=== PATIENT | male | born 1950 | race Caucasian/White ===

== ENCOUNTER 2020-08-29 10:11 | Outpatient (REF) | payer MEDICARE, SELFPAY ==
--- NOTE | 2020-08-29 10:17 | XR_ITS ---
EXAMINATION: KNEE X-RAY CLINICAL INFORMATION: Left knee pain COMPARISON: Previous x-ray December 2019 TECHNIQUE: Standing AP view of both knees and standing lateral view of the left knee FINDINGS: Left: There is a 3 component left knee replacement in satisfactory position. No fracture or dislocation is seen. There is a small joint effusion. There is a right knee replacement in satisfactory position. XR/XR knee LT 2V IMPRESSION: Left knee: Satisfactory appearance of component knee replacement. Small joint effusion. Right knee: Satisfactory appearance of right knee replacement.
--- NOTE | 2020-08-29 10:17 | XR_ITS ---
EXAMINATION: KNEE X-RAY CLINICAL INFORMATION: Left knee pain COMPARISON: Previous x-ray December 2019 TECHNIQUE: Standing AP view of both knees and standing lateral view of the left knee FINDINGS: Left: There is a 3 component left knee replacement in satisfactory position. No fracture or dislocation is seen. There is a small joint effusion. There is a right knee replacement in satisfactory position. XR/XR knee standing BI IMPRESSION: Left knee: Satisfactory appearance of component knee replacement. Small joint effusion. Right knee: Satisfactory appearance of right knee replacement.
== END 2020-08-29 10:12 | disposition home or self-care (01) ==
LOC: HO.HOSX 10:11
PROVIDERS: PCP Internal Medicine; Referring Provider Internal Medicine; Visit Provider Orthopaedic Surgery
DX: M25.562 Pain in left knee (principal); M25.561 Pain in right knee; Z96.652 Presence of left artificial knee joint
CPT/HCPCS: 73560; 73565; 99212

== ENCOUNTER 2020-11-21 10:05 | Outpatient (REF) | payer MEDICARE, SELFPAY ==
--- NOTE | 2020-11-21 10:10 | XR_ITS ---
EXAMINATION: XR CERVICAL SPINE CLINICAL INFORMATION: Pain. Spondylosis with radiculopathy. COMPARISON: None TECHNIQUE: 3 views of the cervical spine were obtained. FINDINGS: The craniocervical junction is normal. The dens and atlantodental articulation are intact. The cervical vertebra have normal height. No fracture or prevertebral soft tissue swelling. No focal lytic or osteoblastic lesion. Multilevel moderate and severe facet arthropathy and discovertebral degenerative changes. The loss of disc space is worst at C5-C6 (posteriorly) and C6-C7. There is approximately 0.2 cm degenerative anterolisthesis at C4-C5 and C5-C6. Otherwise, cervical vertebra have normal alignment. A focus of nuchal ligament ossification projects posterior to C4-C5. The visualized lung apices are normal. XR/XR cervical spine 3V IMPRESSION: * Moderate to severe multilevel degenerative arthropathy of the cervical spine. * Mild degenerative anterolisthesis is present at C4-C5 and C5-C6. Otherwise, alignment is normal.
== END 2020-11-21 10:06 | disposition home or self-care (01) ==
LOC: HO.XRAY 10:05
PROVIDERS: PCP Internal Medicine; Visit Provider Internal Medicine
DX: M47.22 Other spondylosis with radiculopathy, cervical region (principal)
CPT/HCPCS: 72040

== ENCOUNTER 2021-02-09 11:00 | Outpatient (RCR) | payer MEDICARE, SELFPAY ==
--- NOTE | 2020-12-06 08:54 | MHC.PT.EP ---
[facility] [place] Office [place] Office [place] Office [address] [phone] F: [phone] F: [phone] F: [phone] F: [phone] Physical Therapy Plan of Care Date of Evaluation: 12/05/20 Date of Surgery: n/a Diagnosis: Other spondylosis with radiculopathy, cervical region Assessment: Patient is a 70 year old R handed male who presents with s/s consistent with cervical pain/spondylosis, radiculopathy. He stays active daily with what he refers to as his honey-do list including mostly cna gna. Patient past medical history includes TKA x2 and HTN. Current impairments include pain, ROM, posture, activity tolerance and functional mobility. Functional limitations include decreased ability to drive, sleep, carry, push, pull, and perform weight bearing activities.. Patient is motivated with good rehab potential. Skilled PT will address impairments and functional limitations in order to achieve goals. Frequency and Duration: The patient will be seen 2x/week for 5 weeks Short Term Goals: I with HEP - 2 weeks AROM L rotation 28 - 2 weeks no sleep disturbance from c-spine - 3 weeks Jail Goals: NPDI 12% or less - 5 weeks reduced tissue tension - 4 weeks AROM L rotation 34 - 5 weeks Treatment Plan: Modalities to reduce pain, spasms and effusion. Manual therapy to restore motion and function. Therapeutic exercise to improve strength and flexibility. Neuromuscular re-education for posture and balance. Therapeutic activities to return to functional activities of daily living. Electronically signed by: Femi Rebollar PT Please sign and return to therapist. Thank you for your referral.
--- NOTE | 2021-03-02 09:59 | MHC.PT.DC ---
[facility] [place] Office [place] Office [place] Office [address] [phone] F: [phone] F: [phone] F: [phone] F: [phone] Physical Therapy Discharge Report Diagnosis: Other spondylosis with radiculopathy, cervical region Date of Surgery: n/a Date of Evaluation: 12/05/20 Date of Discharge: 02/15/21 Treatments to Date: 16 Cancellations to Date: 0 No Shows to Date: 0 Discharge Status: Discharge Summary: I with HEP. L rotation to 41, R 50. Reduced tissue tension. No sleep disturbance from t-spine for 2 weeks. Pt progressed well over the course of skilled PT making progress on impairments and functional limitations resulting in an improved quality of life. Pt is I with HEP and appropriate to d/c to HEP at this time. Electronically signed by: Femi Rebollar, PT Please sign and return to therapist. Thank you for your referral.
== END 2021-03-02 10:01 | disposition home or self-care (01) ==
LOC: HO.PTCHIC 11:00
PROVIDERS: PCP Internal Medicine; Visit Provider Internal Medicine
DX: M47.22 Other spondylosis with radiculopathy, cervical region (principal)
CPT/HCPCS: 97012; 97014; 97110; 97140; 97162

== ENCOUNTER 2021-08-29 09:54 | Outpatient (REF) | payer MEDICARE, SELFPAY ==
--- NOTE | ~2021-08-29 | XR_ITS ---
EXAMINATION: XR KNEE, LEFT XR KNEE, STANDING BILATERAL CLINICAL INDICATION: Pain. COMPARISON: Comparison is made to previous dated 01/05/2020. TECHNIQUE: Standing image of the knees and 3 detailed views of the left knee. FINDINGS: Standing image demonstrates two-part prosthesis on the right and left. No change from previous. Appear stable. Detailed imaging of the left knee show stable exam. Some dystrophic calcification is now seen posterior. No convincing evidence for hardware failure. XR/XR knee standing BI IMPRESSION: Prosthesis right and left knee as described. No acute finding. Some dystrophic calcification is seen about the left knee.
--- NOTE | ~2021-08-29 | XR_ITS ---
EXAMINATION: XR KNEE, LEFT XR KNEE, STANDING BILATERAL CLINICAL INDICATION: Pain. COMPARISON: Comparison is made to previous dated 01/05/2020. TECHNIQUE: Standing image of the knees and 3 detailed views of the left knee. FINDINGS: Standing image demonstrates two-part prosthesis on the right and left. No change from previous. Appear stable. Detailed imaging of the left knee show stable exam. Some dystrophic calcification is now seen posterior. No convincing evidence for hardware failure. XR/XR knee LT 2V IMPRESSION: Prosthesis right and left knee as described. No acute finding. Some dystrophic calcification is seen about the left knee.
== END 2021-08-29 09:55 | disposition home or self-care (01) ==
LOC: HO.HOSX 09:54
PROVIDERS: Visit Provider Physician Assistant
DX: T84.033A Mechanical loosening of internal left knee prosthetic joint, initial encounter (principal); M25.562 Pain in left knee; M25.561 Pain in right knee
CPT/HCPCS: 73560; 73565; 99212

== ENCOUNTER 2023-07-24 08:24 | Outpatient (AMB) | payer MEDICARE, SELFPAY ==
--- NOTE | 2023-07-24 08:37 | A.OFFPC_ITS ---
Vital Signs 07/24/23 08:38 Height 5 ft 6 in Weight 221 lb 6 oz BMI 35.7 BP 112/70 Blood Pressure Location Lt brachial Position Sitting Pulse 65 Pulse Source Pulse Oximeter Pulse Oximetry (%) 96 Oxygen Delivery Method Room Air Intake Visit Reasons: Physical exam Intake Note: Patient is here today for a physical. Drug Worker Required: No Wound Care Center Consultant: Not Required per policy Accompanied by: Self / Same As Patient Allergies amoxicillin [AMOXICILLIN] Allergy (Intermediate, Verified 07/24/23 08:59) dizziness,nausea Medication List - Last Reconciled 07/24/23 by Dev Pierre MD alclometasone 0.05% 1 appl topical BID amlodipine 10 mg PO DAILY aspirin (Adult Low Dose Aspirin) 81 mg PO DAILY bisoprolol-hydrochlorothiazide 5-6.25 mg 1 tab PO DAILY ketoconazole 2% 1 appl topical BID losartan 100 mg PO DAILY naproxen 500 mg PO DAILY Tobacco use date assessed: 07/24/23 Fall risk assessment: No Falls in past year Last assessed Fall Risk: 07/24/23 Dental Screening Dental Screen Date: 07/24/23 Did you have a dental visit in the last 12 months?: Yes Did you have a dental problem in the last 6 months where you did not have access to dental care?: No Was dental information given to patient?: Patient has dentist HPI Physical exam HPI Details 72-year-old male presents to the office requesting an annual physical. He is compliant with medications. Able to drive at night. Lives independently and is able to take care of all his activities. Uses Naprosyn intermittently for osteoarthritis. REPLACED BY [facility] Medical History Class 2 severe obesity with body mass index (BMI) of 35 to 39.9 with serious comorbidity Osteoarthritis of neck Benign essential HTN Diverticulosis Bilateral primary osteoarthritis of knee Surgical History History of tooth extraction History of colonoscopy H/O removal of neck cyst History of knee replacement procedure of left knee History of knee replacement procedure of right knee History of tonsillectomy History of appendectomy Family History Father No problems noted. Mother No problems noted. Brother Healthy adult Son No problems noted. Son No problems noted. Daughter Healthy adult Social History Housing: House Alcohol intake: current Alcohol intake frequency: holidays/special occasions only Patient Tobacco Use Status: Former Tobacco user (once a month) Tobacco use type: Cigar e-Cigarette/Vaping Use: Never Used service: No Current occupational status: retired Cognitive needs: No Hearing needs: No Vision needs: Yes (glasses) Questionnaire Thrive Questionnaire Date Thrive assessed: 11/06/22 QUAN-7 AMB Questionnaire QUAN-7 Date QUAN - 7 assessed: 11/06/22 Source: Developed by Drs. Homero Ricardo, Meredith Khalil, Bin He and colleagues, with an educational juan miguel from [employer]. Physical exam (Primary Care) Vital Signs: Last Vital Signs Pulse 65 07/24/23 08:38 BP 112/70 07/24/23 08:38 Pulse Ox 96 07/24/23 08:38 Oxygen Delivery Method Room Air 07/24/23 08:38 Care Plan Goal for BP management: Blood pressure is in range. BMI result Body Mass Index 35.7 Tobacco/Smoking Status: Tobacco use Status Tobacco use date assessed 07/24/23 07/24/23 08:45 Patient Tobacco Use Status Former Tobacco user (once a 07/24/23 08:45 month) Tobacco use type Cigar 07/24/23 08:45 e-Cigarette/Vaping Use Never Used 07/24/23 08:45 Thrive Assessment: Date of Thrive Assessment Date Thrive assessed 11/06/22 07/24/23 08:45 Advance Care Planning discussion: Exists, not on file Date of discussion: 07/24/23 Forms completed: Health Care Proxy and MOLST Time spent: 1-15 minutes, not on file Actual minutes spent: 5 Const General: cooperative and healthy appearing Nutritional Appearance: well nourished Orientation/consciousness: patient oriented x3 Limitations: no limitations HENMT Head: Yes normal to inspection Eyes General: appearance normal, both eyes and all related structures Neck Neck: Yes normal visual inspection Chest Chest palpation & inspection: normal palpation of entire chest wall Resp Effort & Inspection: normal respiratory effort Neuro General: patient oriented x3 Assessment and Plan Assessment & Plan (1) Benign essential HTN: Code(s): I10 - Essential (primary) hypertension (2) Annual visit for general adult medical examination without abnormal findings: Code(s): Z00.00 - Encounter for general adult medical examination without abnormal findings Plan: Blood work has been ordered. Patient will be getting his COVID and flu vaccine shortly. Orders: Orders Basic Metabolic Panel Today I10 - Essential (primary) hypertension Complete Blood Count no Diff Today I10 - Essential (primary) hypertension UA and rflx microscopic Today I10 - Essential (primary) hypertension Liver Panel Today I10 - Essential (primary) hypertension Lipid Panel Today I10 - Essential (primary) hypertension Thyroid Stimulating Hormone Today I10 - Essential (primary) hypertension Prostate Specific Antigen Scr Today I10 - Essential (primary) hypertension Coding Level of Care Code Est Pt Prev Care >65y(54540) Diagnoses Benign essential HTN I10 Annual visit for general adult medical examination without abnormal findings Z00.00 Additional Codes Vital Signs *Quality* - Advance Care Planning discussion: Exists, not on file ([id number]) Vital Signs *Quality* - Time spent: 1-15 minutes, not on file ([id number])
[2023-07-24 08:38] VITALS: BP 112/70; PULSE 65; O2SAT 96; BMI 35.7
== END 2023-07-24 08:56 | disposition home or self-care (01) ==
PROVIDERS: PCP Internal Medicine; Visit Provider Internal Medicine
DX: Z00.00 Encounter for general adult medical examination without abnormal findings (principal); I10 Essential (primary) hypertension; Z96.652 Presence of left artificial knee joint
CPT/HCPCS: 1124F; 99397

== ENCOUNTER 2023-07-24 09:04 | Outpatient (REF) | payer MEDICARE, SELFPAY ==
[2023-07-24 10:07] LABS: Hematocrit 50.8 % (42.0-52.0); Mean Corpuscular HGB Conc 33.5 g/dl (31.0-36.0); Mean Corpuscular Volume 89.6 fL (80.0-98.0); Mean Platelet Volume 11.2 fL (9.4-12.4); Platelet Count 239 X10*3/uL (160-400); Red Blood Count 5.67 X10*6/uL (4.60-5.80); Red Cell Distribution Width 13.9 % (11.0-16.0)
[2023-07-24 11:35] LABS: Alanine Aminotransferase 60 U/L (0-40); Albumin Level 4.2 g/dL (3.5-5.0); Alkaline Phosphatase 55 U/L (39-117); Anion Gap 18 (12-20); Aspartate Amino Transferase 43 U/L (5-37); Bilirubin Direct 0.3 mg/dL (0.0-0.5); Bilirubin Total 0.8 mg/dL (0.0-1.0); Blood Urea Nitrogen 13 mg/dL (9-16); Calcium 9.8 mg/dL (8.4-10.2); Carbon Dioxide 24 mmol/L (22-29); Chloride 106 mmol/L (96-108); Cholesterol 193 mg/dL (<200); Estimated Glomerular Filt Rate > 60; Glucose Random 115 mg/dL (60-115); HDL Cholesterol 36 mg/dL (>40); LDL Cholesterol Calculated 116 mg/dL (<100); Potassium 3.9 mmol/L (3.3-5.1); Prostate Specific Antigen Scr 5.08 ng/mL (<0.05-4.0); Sodium 144 mmol/L (135-145); Thyroid Stimulating Hormone 1.61 uIU/mL (0.32-4.0); Total Protein 7.5 g/dL (6.5-8.0); Triglycerides 208 mg/dL (<150)
[2023-07-24 14:15] LABS: Appearance Urine Clear; Color Urine Yellow; Glucose Urine UA Negative (Negative); Leukocyte Esterase Urine Negative (Negative); Nitrite Urine Negative (Negative); Specific Gravity - Urine 1.015 (1.005-1.025); Urine Blood Negative (Negative); Urine Ketones Negative (Negative); Urine Protein Negative (Neg-Trace)
== END 2023-07-24 09:05 | disposition home or self-care (01) ==
LOC: HO.LAB 09:04
PROVIDERS: PCP Internal Medicine; Visit Provider Internal Medicine
DX: Z12.5 Encounter for screening for malignant neoplasm of prostate (principal); I10 Essential (primary) hypertension
CPT/HCPCS: 36415; 80048; 80061; 80076; 81003; 84153; 84443; 85027

== ENCOUNTER → 2023-09-15 10:56 | Outpatient (BNVA) | payer MEDICARE, SELFPAY | PROVIDERS: PCP Internal Medicine; Referring Provider Internal Medicine; Visit Provider Urology ==

== ENCOUNTER 2023-10-22 14:24 | Outpatient (AMB) | payer MEDICARE, SELFPAY ==
--- NOTE | 2023-10-22 14:33 | A.OFFVIS_ITS ---
Intake Intake Visit Reasons: Elevated PSA Intake Note: NEW Patient presents today to established treatment for Elevated PSA 5.08 ng/mL, 07/24/2023: Meds- None Allergies to Antibiotic- Amoxicillin Blood Thinner- Aspirin [place]ants Specialist Required: No Accompanied by: Self / Same As Patient Allergies amoxicillin [AMOXICILLIN] Allergy (Intermediate, Verified 11/22/23 12:19) dizziness,nausea Medication List - Last Reconciled 10/22/23 by Harris Zhang MD alclometasone 0.05% 1 appl topical BID amlodipine 10 mg PO DAILY aspirin (Adult Low Dose Aspirin) 81 mg PO DAILY bisoprolol-hydrochlorothiazide 5-6.25 mg 1 tab PO DAILY finasteride (Proscar) 5 mg PO DAILY 90 days ketoconazole 2% 1 appl topical BID losartan 100 mg PO DAILY naproxen 500 mg PO DAILY HPI HPI Comments History of Present Illness Details Nolan is a 73 year old male who is here for evaluation for elevated PSA. 07/24/2023--Elevated PSA 5.08 ng/mL, Past Medical history of Class 2 severe obesity with body mass index (BMI) of 35 to 39.9 Benign essential HTN Bilateral primary osteoarthritis of knee Surgical history includes but is not limited to:History of knee replacement procedure of B/L knees, appendectomy The patient has feeling of incomplete bladder emptying and weak urinary stream, denies daytime urinary frequency, urinary incontinence, nocturia x 2, denies hematuria, or dysuria, I have discussed that elevated PSA may indicate changes in the prostate including benign enlargement, cancer and an inflammatory condition. I have discussed doing a biopsy has risks and that management in early detection of prostate cancer may include active surveillance. Exam- Prostate - smooth, enlarged Plan: Repeat PSA, US Retroperitoneum [facility] Medical History Class 2 severe obesity with body mass index (BMI) of 35 to 39.9 with serious comorbidity Osteoarthritis of neck Benign essential HTN Diverticulosis Bilateral primary osteoarthritis of knee Surgical History History of tooth extraction History of colonoscopy H/O removal of neck cyst History of knee replacement procedure of left knee History of knee replacement procedure of right knee History of tonsillectomy History of appendectomy Family History Father No problems noted. Mother No problems noted. Brother Healthy adult Son No problems noted. Son No problems noted. Daughter Healthy adult Social History Housing: House Alcohol intake: current Alcohol intake frequency: holidays/special occasions only Patient Tobacco Use Status: Former Tobacco user (once a month) Tobacco use type: Cigar e-Cigarette/Vaping Use: Never Used Advance Directives: No Advance Directives Information Provided: Yes service: No Current occupational status: retired Cognitive needs: No Hearing needs: No Vision needs: Yes (glasses) Review of Systems Const All systems reviewed & are unremarkable except as noted in HPI and below Reports no additional complaints Eyes Reports no additional complaints ENT Reports no additional complaints Card Denies dyspnea Resp Denies cough and Denies dyspnea GI Reports no additional complaints Musc Reports no additional complaints Skin/Breast Denies rash and Denies unusual bruising Neuro Reports no additional complaints Psych Reports no additional complaints Endo Reports no additional complaints John/Lymph Reports no additional complaints Aller/Immun Reports no additional complaints Physical Exam Const General: healthy appearing, no acute distress and well developed Orientation/consciousness: patient oriented x3 HEENT Head: Yes normocephalic and Yes atraumatic Eyes Conjunctivae: conjunctivae normal Neck Neck: Yes normal visual inspection Chest Chest palpation & inspection: normal inspection of the chest Resp Effort & Inspection: normal respiratory effort Cardio Rate: regular rate GI Inspection: Yes normal to inspection Palpation (GI): Soft to palpation Other: Prostate Exam: smooth enlarged Skin General skin exam: no rashes or lesions noted Neuro General: patient oriented x3 Extrem General: No pedal edema Psych Appearance: grossly normal Affect: normal affect Results AMB Urinalysis, Automated UA Leukoctes 0 Jerman/uL Last Edit by VEGA Martines on 10/22/23 15:56 UA Nitrite Negative Last Edit by VEGA Martines on 10/22/23 15:56 UA Urobilinogen 0.2 mg/dL Last Edit by VEGA Martines on 10/22/23 15:5 6 UA Protein 0 mg/dL Last Edit by Brent Doyle Afia on 10/22/23 15:56 UA pH 6.0 Last Edit by Brent Doyle Afia on 10/22/23 15:56 UA Blood 25 Juan/uL Last Edit by Brent Doyle Afia on 10/22/23 15:56 1+ Brent Doyle 10/22/23 15:56 UA Specific Harrod 1.020 Last Edit by VEGA Martines on 10/22/23 15: 56 UA Ketone Negative Last Edit by Brent Doyle Afia on 10/22/23 15:56 UA Bilirubin 0 mg/dL Last Edit by Brent Doyle Afia on 10/22/23 15:56 UA Glucose 0 mg/dL Last Edit by Brent Doyle Afia on 10/22/23 15:56 Results Reviewed Results Reviewed: Laboratory Last Values Urine pH (Auto) 6.0 10/22/23 15:55 Specific Harrod (Auto) 1.020 10/22/23 15:55 Urine Protein (Auto) 0 mg/dL 10/22/23 15:55 Glucose (UA)(Auto) 0 mg/dL 10/22/23 15:55 Urine Ketones (Auto) Negative 10/22/23 15:55 Urine Blood (Auto) 25 Juan/uL 10/22/23 15:55 Urine Nitrite (Auto) Negative 10/22/23 15:55 Urine Bilirubin (Auto) 0 mg/dL 10/22/23 15:55 Urine Urobilinogen (Auto) 0.2 mg/dL 10/22/23 15:55 Leukocyte Esterase (Auto) 0 Jerman/uL 10/22/23 15:55 Assessment & Plan Assessment & Plan (1) Weak urinary stream: Code(s): R39.12 - Poor urinary stream (2) Enlarged prostate: Code(s): N40.0 - Benign prostatic hyperplasia without lower urinary tract symptoms (3) Elevated PSA: Code(s): R97.20 - Elevated prostate specific antigen [PSA] Plan Repeat PSA US Retroperitoneum Orders: Orders PSA,Total (Free>4and<10) 13 Weeks R97.20 - Elevated prostate specific antigen [PSA] AMB Urinalysis Automated 10/22/23 Z13.9 - Encounter for screening, unspecified US retroperitoneal comp 2 Months N40.0 - Benign prostatic hyperplasia without lower urinary tract symptoms, R39.12 - Poor urinary stream Medications: New 2 finasteride (Proscar) 5 mg PO DAILY 90 tabs 3RF 90 days C61 - Malignant neoplasm of prostate Coding Level of Care Code New Pt Level 4 (28703) Diagnoses Weak urinary stream R39.12 Enlarged prostate N40.0 Elevated PSA R97.20
== END 2023-10-22 15:48 | disposition home or self-care (01) ==
PROVIDERS: PCP Internal Medicine; Visit Provider Urology
DX: R39.12 Poor urinary stream (principal); N40.0 Benign prostatic hyperplasia without lower urinary tract symptoms; R97.20 Elevated prostate specific antigen [PSA]
CPT/HCPCS: 99204

== ENCOUNTER → 2023-10-22 14:24 | Outpatient (BNVA) | payer MEDICARE, SELFPAY | PROVIDERS: PCP Internal Medicine; Visit Provider Urology | DX: R97.20 Elevated prostate specific antigen [PSA] (principal); N40.1 Benign prostatic hyperplasia with lower urinary tract symptoms; R39.12 Poor urinary stream | CPT/HCPCS: 81003; 99202 ==

== ENCOUNTER 2023-11-03 10:30 | Outpatient (REF) | payer MEDICARE, SELFPAY ==
--- NOTE | ~2023-11-03 | US_ITS ---
EXAMINATION: US RETROPERITONEAL COMPLETE (RENAL) CLINICAL INFORMATION: Benign prostatic hyperplasia without lower urinary tract symptoms. COMPARISON: None available. TECHNIQUE: Real-time imaging of the kidneys and bladder. FINDINGS: RIGHT KIDNEY: 10.4 x 5.1 x 6.3 cm (SAG x AP x TRV). The kidney is normal in size, contour, and echogenicity. Renal cortical thickness is normal. No calculi or focal parenchymal lesions. No hydronephrosis. LEFT KIDNEY: 11.7 x 6.1 x 4.7 cm (SAG x AP x TRV). The kidney is normal in size, contour, and echogenicity. Renal cortical thickness is normal. No renal calculi or hydronephrosis. 2.2 cm simple appearing lower pole cyst for which no follow-up imaging is usually warranted. BLADDER: Well distended and normal. Bilateral ureteral jets are demonstrated. Prevoid bladder volume is 208 mL. Postvoid bladder volume is 64 mL. PROSTATE GLAND: 5.2 x 5.9 x 5.7 cm, volume 91 mL. Coarse calcifications are noted within the prostate gland. US/US retroperitoneal comp IMPRESSION: 1. No renal calculi or hydronephrosis of either kidney. 2. Enlarged prostate gland. 3. Prominent post void bladder residual of 64 mL.
== END 2023-11-03 10:31 | disposition home or self-care (01) ==
LOC: HO.HMGCX 10:30
PROVIDERS: PCP Internal Medicine; Visit Provider Urology
DX: N40.0 Benign prostatic hyperplasia without lower urinary tract symptoms (principal); R39.12 Poor urinary stream
CPT/HCPCS: 76770

== ENCOUNTER 2023-11-22 12:14 | Emergency (ER) | payer MEDICARE, SELFPAY ==
--- NOTE | ~2023-11-22 | CT_ITS ---
CT ANGIOGRAM NECK WITH CONTRAST CT ANGIOGRAM BRAIN WITH CONTRAST CLINICAL INFORMATION: Disequilibrium sudden in onset with headache. COMPARISON: Head CT 11/22/2023. TECHNIQUE: Test bolus sequences followed by intravenous administration 70 mL of Omnipaque 350. Helical imaging was performed in the axial plane from the thoracic inlet to the skull vertex. Delayed postcontrast imaging of the head was also performed. The data was processed at the nuclear medical technologist workstation for generation of MIP sequences. Angled MIPs and volume rendered reformatted images were also generated at an offline 3D workstation under concurrent supervision. Stenoses are assessed in accordance with NASCET criteria unless otherwise indicated. This CT examination was performed using dose optimization techniques as appropriate, variously including the following: *Automated exposure control *Adjustment of mA and/or kV according to patient size (this includes techniques or standardized protocols for targeted exams where dose is matched to indication/reason for exam; i.e. extremities or head) *Use of iterative reconstruction technique FINDINGS: BRAIN: [There is global cerebral volume loss and there is moderate chronic microangiopathy. There is no intracranial hemorrhage, hydrocephalus, extra-axial surface collection, midline shift, or other herniation pattern. Contreras to white matter differentiation is diffusely maintained without evidence of an evolved acute territorial infarct. The basilar cisterns are preserved. No significant soft tissue abnormality. No acute osseous abnormality. The paranasal sinuses and the mastoid air cells are well aerated.] CERVICAL SOFT TISSUES AND LUNG APICES: Imaged upper lungs are clear. There is advanced cervical spondylosis. Advanced hypertrophic degenerative changes involving the right greater than left lateral atlantoaxial articulation. Lingual tonsillar hypertrophy partially effaces the vallecula bilaterally. NECK CTA: [There is a classic 3 vessel configuration of the aortic arch. Proximal arch vessels are non-stenotic. The vertebral arteries are codominant. No significant ostial stenosis is visualized on either side. Both vertebral arteries are widely patent throughout their extracranial cervical course. Both carotid arteries are normal in course and caliber.] Atherosclerotic disease involving the carotid bifurcations bilaterally without significant stenosis involving the proximal internal carotid arteries on either side. BRAIN CTA: [There is normal opacification of major intracranial arteries. No focal flow-limiting stenosis nor discrete proximal large artery occlusion. No aneurysm. Timing of the contrast bolus allows assessment of the major dural venous sinuses, which all opacify normally] CT/CT angio head neck stroke IMPRESSION: - No acute intracranial findings. There is global cerebral volume loss and there is moderate chronic microangiopathy. - No acute arterial occlusions and no significant arterial stenoses within the head or neck. - There is advanced cervical spondylosis. Advanced hypertrophic degenerative changes involving the right greater than left lateral atlantoaxial articulation.
--- NOTE | ~2023-11-22 | CT_ITS ---
EXAMINATION: CT HEAD WITHOUT CONTRAST CLINICAL INFORMATION: Dizziness and headaches. COMPARISON: None. TECHNIQUE: Contiguous axial imaging was performed from the skullbase to vertex without intravenous administration of contrast. This CT examination was performed using dose optimization techniques as appropriate, variously including the following: *Automated exposure control *Adjustment of mA and/or kV according to patient size (this includes techniques or standardized protocols for targeted exams where dose is matched to indication/reason for exam; i.e. extremities or head) *Use of iterative reconstruction technique DLP: 848 mGy-cm. FINDINGS: There is no evidence of acute intracranial hemorrhage or territorial infarction. No abnormal mass effect or midline shift is seen. No extra-axial fluid collections are identified. Moderate chronic white matter microangiopathy is visible. Moderate diffuse brain parenchymal volume loss noted with concordant ex vacuo prominence of the ventricles. The osseous structures and soft tissues are normal. The mastoid air cells and visualized portions of the paranasal sinuses are well aerated. CT/CT head for stroke IMPRESSION: No acute intracranial hemorrhage or territorial infarction. Moderate chronic white matter microangiopathy and moderate diffuse brain parenchymal volume loss.
[2023-11-22 12:19] VITALS: BP 158/81; PULSE 59; RESP 16; TEMP 36.4; O2SAT 98; BMI 35.5
--- NOTE | 2023-11-22 12:19 | ED_ITS ---
HPI - General Adult General Chief complaint: Dizziness Stated complaint: dizzy, vomiting, sweats Time Seen by Provider: 11/22/23 12:49 Source: patient and family Mode of arrival: ambulatory Limitations: no limitations History of Present Illness HPI narrative: This is a 73-year-old male history of BPH, hypertension, obesity, presenting to the emergency department for evaluation of dizziness, nausea, inability to walk since around 11 30 this morning however patient reports he has not been feeling right since last night patient does not have a history of headaches and he had a headache all of yesterday, headache started mid afternoon and has been present ever since, reports frontal pressure/ache. He reports the headache has improved however these new symptoms started. Denies visual disturbances, weakness. No history of strokes or TIAs. Not on a blood thinner. Last known well time unclear as patient does report his symptoms started yesterday and have progressed into this morning. NIH stroke scale 0 upon arrival to ED room 1308 Related Data Home Medications Medication Instructions Recorded Confirmed aspirin 81 mg tablet,delayed 81 mg PO DAILY 11/20/20 10/22/23 release (Adult Low Dose Aspirin) alclometasone 0.05 % topical cream 1 appl topical BID 05/16/22 10/22/23 ketoconazole 2 % topical cream 1 appl topical BID 05/16/22 10/22/23 Previous Rx's Medication Instructions Recorded losartan 100 mg tablet 100 mg PO DAILY #90 tabs 01/01/23 naproxen 500 mg tablet 500 mg PO DAILY #30 tabs 01/09/23 bisoprolol 5 1 tab PO DAILY #90 tabs 03/29/23 mg-hydrochlorothiazide 6.25 mg tablet finasteride 5 mg tablet (Proscar) 5 mg PO DAILY 90 days #90 tabs 10/22/23 amlodipine 10 mg tablet 10 mg PO DAILY #90 tabs 11/21/23 Allergies Allergy/AdvReac Type Severity Reaction Status Date / Time amoxicillin [AMOXICILLIN] Allergy Intermediate dizziness,n Verified 11/22/23 12:19 ausea [facility] Past Medical History Medical History Class 2 severe obesity with body mass index (BMI) of 35 to 39.9 with serious comorbidity Osteoarthritis of neck Benign essential HTN Diverticulosis Bilateral primary osteoarthritis of knee Surgical History History of tooth extraction History of colonoscopy H/O removal of neck cyst History of knee replacement procedure of left knee History of knee replacement procedure of right knee History of tonsillectomy History of appendectomy Family History Family History Father No problems noted. Mother No problems noted. Brother Healthy adult Son No problems noted. Son No problems noted. Daughter Healthy adult Social History Social History Housing: House Alcohol intake: current Alcohol intake frequency: holidays/special occasions only Patient Tobacco Use Status: Former Tobacco user (once a month) Tobacco use type: Cigar e-Cigarette/Vaping Use: Never Used Advance Directives: No Advance Directives Information Provided: Yes service: No Current occupational status: retired Cognitive needs: No Hearing needs: No Vision needs: Yes (glasses) Physical Exam ED Vital Signs: Vital Signs - 24 hr 11/22/23 12:19 11/22/23 13:58 11/22/23 13:58 Temperature 97.6 F Pulse Rate 59 54 64 Respiratory Rate 16 Blood Pressure 158/81 H 154/99 H 168/91 H Pulse Oximetry 98 Oxygen Delivery Method Room Air 11/22/23 13:58 11/22/23 14:10 Temperature Pulse Rate 68 70 Respiratory Rate 18 Blood Pressure 154/93 H 154/93 H Pulse Oximetry 96 Oxygen Delivery Method Room Air BMI result Body Mass Index 35.5 Course Course Course Narrative: RME:?73 yo male hx of obesity, HTN, enlarged prostate (on finasteride) here for eval of dizziness, vomiting, and sweats. Dizziness described as light headed . Endorses 1 episode of vomiting on arrival to ED. No hematemesis. Denies documented fever, chills, chest pain, SOB, palpitations, abdominal pain, constipation, diarrhea, dysuria, hematuria. here in wheel chair d/t dizziness. typically ambulates independently. labs, UA ordered in triage Full HPI, ROS and PE to be performed by the primary ED provider. Reevaluation(s) Reevaluation #1: CBC unremarkable. Chemistry with potassium of 3.2. Oral potassium ordered. No other findings requiring intervention. UA without infection. Normal coags. CTA with no acute intracranial findings. There is global cerebral volume loss and moderate chronic microangiopathy no arterial occlusion. No arterial stenosis within the head or neck. Patient feeling much better still getting fluids NIHSS-0 Ambulatory now w/o difficulty. SIgn out to dustin leroy Time: 16:45 Medications Administered Generic Name Dose Route Start Last Admin Trade Name Freq PRN Reason Stop Dose Admin Sodium Chloride 1,000 mls @ 999 mls/hr 11/22/23 16:00 11/22/23 16:16 Ns IV 11/22/23 17:00 999 mls/hr .Q1H1M ALPHONSE Administration Discontinued Medications Generic Name Dose Route Start Last Admin Trade Name Freq PRN Reason Stop Dose Admin Iohexol 100 ml 11/22/23 13:28 11/22/23 13:29 Iohexol 350 Mg/Ml 100 Ml Infus..Btl IV 11/22/23 13:29 70 ml ONCE ONE Administration Meclizine HCl 25 mg 11/22/23 13:43 11/22/23 14:19 Meclizine Hcl 25 Mg Tablet PO 11/22/23 13:44 25 mg ONCE ONE Administration Potassium Chloride 20 meq 11/22/23 13:43 11/22/23 14:19 Potassium Chloride Er 20 Meq Tab.Er.Prt PO 11/22/23 13:44 20 meq ONCE ONE Administration Medical Decision Making Medical Decision Making [facility] Narrative: 1308 73-year-old male presents with headache since yesterday with associated disequilibrium, dizziness, nausea which started at 11:30 today. Physical exam benign. Normal [id number], [id number] negative Romberg and pronator drift. NIH stroke scale 0. Patient reports he does not want to walk due to dizziness. History and physical exam concerning for BPPV versus posterior infarct. Unlikely intracranial hemorrhage. Will rule out metabolic derangements. Plan at this time Will order CT head for stroke with CTA. Differential Diagnosis Differential Diagnoses: The differential diagnosis associated with the presentation includes History and physical exam concerning for BPPV versus posterior infarct. Unlikely intracranial hemorrhage. Will rule out metabolic derangements. Admission/Observation Consideration of admission/observation: Escalation of care including admission/observation considered Lab Data [facility] Lab Attestation statement: I reviewed the patient's lab results. 11/22/23 12:33 11/22/23 12:33 Labs: Lab Results 11/22/23 11/22/23 11/22/23 Range/Units 12:33 13:36 13:37 WBC 10.8 (4.8-10.8) X10*3/uL RBC 5.98 H (4.60-5.80) X10*6/uL Hgb 17.8 (14.0-18.0) g/dl Hct 52.1 H (42.0-52.0) % MCV 87.1 (80.0-98.0) fL MCH 29.8 (27.0-33.0) pg MCHC 34.2 (31.0-36.0) g/dl RDW 13.6 (11.0-16.0) % Plt Count 246 (160-400) X10*3/uL MPV 11.1 (9.4-12.4) fL Immature Gran % (Auto) 0.3 (0.0-0.4) % Neut % (Auto) 54.1 (45-73) % Lymph % (Auto) 32.1 (20-40) % [place] % (Auto) 10.1 (2-11) % Eos % (Auto) 3.0 (0-4) % Baso % (Auto) 0.4 (0-2) % Lymph # (Auto) 3.5 (1.2-4.9) X10*3/uL [place] # (Auto) 1.1 (0.1-1.2) X10*3/uL Eos # (Auto) 0.3 (0.0-0.4) X10*3/uL Baso # (Auto) 0.0 (0.0-0.2) X10*3/uL Abs Immat Gran (auto) 0.03 (0.00-0.03) X10*3/uL Absolute Neuts (auto) 5.9 (2.0-8.3) x10*3/uL Absolute Nucleated RBC 0.000 (0.0-0.012) X10*3/uL Nucleated RBC % (auto) 0.0 (0.0-0.2) /100WBC Whole Blood PT 13.1 (11.1-13.5) sec Whole Blood INR 1.1 (0.9-1.1) Sodium 145 (135-145) mmol/L Potassium 3.2 L (3.3-5.1) mmol/L Chloride 109 H (96-108) mmol/L Carbon Dioxide 22 (22-29) mmol/L Anion Gap 17 (12-20) BUN 17 H (9-16) mg/dL Creatinine 1.23 (0.5-1.4) mg/dL Estim Creat Clear Calc 59.1 Estimated GFR 58 POC Glucose 141 H (60-115) mg/dL Random Glucose 148 H (60-115) mg/dL Calcium 9.7 (8.4-10.2) mg/dL Magnesium 1.9 (1.6-2.6) mg/dL Lipase 27 (8-78) U/L Urine Color Urine Appearance Urine pH (5.0-9.0) Ur Specific [place] (1.005-1.025) Urine Protein (Neg-Trace) mg/dL Urine Glucose (UA) (Negative) mg/dL Urine Ketones (Negative) mg/dL Urine Blood (Negative) Urine Nitrite (Negative) Ur Leukocyte Esterase (Negative) COVID-19 (ANJEL) Negative (Negative) COVID-19 Clin Com See Note Influenza Type A (NOÉ) Negative (Negative) Influenza Type B (NOÉ) Negative (Negative) Influenza A & B Note See Note 11/22/23 Range/Units 14:15 WBC (4.8-10.8) X10*3/uL RBC (4.60-5.80) X10*6/uL Hgb (14.0-18.0) g/dl Hct (42.0-52.0) % MCV (80.0-98.0) fL MCH (27.0-33.0) pg MCHC (31.0-36.0) g/dl RDW (11.0-16.0) % Plt Count (160-400) X10*3/uL MPV (9.4-12.4) fL Immature Gran % (Auto) (0.0-0.4) % Neut % (Auto) (45-73) % Lymph % (Auto) (20-40) % [place] % (Auto) (2-11) % Eos % (Auto) (0-4) % Baso % (Auto) (0-2) % Lymph # (Auto) (1.2-4.9) X10*3/uL [place] # (Auto) (0.1-1.2) X10*3/uL Eos # (Auto) (0.0-0.4) X10*3/uL Baso # (Auto) (0.0-0.2) X10*3/uL Abs Immat Gran (auto) (0.00-0.03) X10*3/uL Absolute Neuts (auto) (2.0-8.3) x10*3/uL Absolute Nucleated RBC (0.0-0.012) X10*3/uL Nucleated RBC % (auto) (0.0-0.2) /100WBC Whole Blood PT (11.1-13.5) sec Whole Blood INR (0.9-1.1) Sodium (135-145) mmol/L Potassium (3.3-5.1) mmol/L Chloride (96-108) mmol/L Carbon Dioxide (22-29) mmol/L Anion Gap (12-20) BUN (9-16) mg/dL Creatinine (0.5-1.4) mg/dL Estim Creat Clear Calc Estimated GFR POC Glucose (60-115) mg/dL Random Glucose (60-115) mg/dL Calcium (8.4-10.2) mg/dL Magnesium (1.6-2.6) mg/dL Lipase (8-78) U/L Urine Color Yellow Urine Appearance Clear Urine pH 7.5 (5.0-9.0) Ur Specific [place] >= 1.030 H (1.005-1.025) Urine Protein Negative (Neg-Trace) mg/dL Urine Glucose (UA) Negative (Negative) mg/dL Urine Ketones Negative (Negative) mg/dL Urine Blood Negative (Negative) Urine Nitrite Negative (Negative) Ur Leukocyte Esterase Negative (Negative) COVID-19 (ANJEL) (Negative) COVID-19 Clin Com Influenza Type A (NOÉ) (Negative) Influenza Type B (NOÉ) (Negative) Influenza A & B Note Independent Interpretation I performed an independent interpretation of an: CT Scan Radiology Impression Discussion of test interpretation with radiology: I have reviewed the radiologist's reading. Chronic Conditions Patient?s care impacted by: Hypertension Discharge Plan Discharge Clinical Impression: Orthostatic dizziness Prescriptions: No Action losartan 100 mg tablet 100 mg PO DAILY Qty: 90 1RF naproxen 500 mg tablet 500 mg PO DAILY Qty: 30 0RF bisoprolol-hydrochlorothiazide 5-6.25 mg tablet 1 tab PO DAILY Qty: 90 1RF amlodipine 10 mg tablet 10 mg PO DAILY Qty: 90 1RF aspirin [Adult Low Dose Aspirin] 81 mg tablet,delayed release (DR/EC) 81 mg PO DAILY alclometasone 0.05 % cream 1 appl topical BID ketoconazole 2 % cream 1 appl topical BID finasteride [Proscar] 5 mg tablet 5 mg PO DAILY 90 Days Qty: 90 3RF
[2023-11-22 12:39] LABS: MANUAL DIFF FLAG NO
[2023-11-22 12:40] LABS: Basophils Percent Auto 0.4 % (0-2); Eosinophils Absolute Auto 0.3 X10*3/uL (0.0-0.4); Hematocrit 52.1 % (42.0-52.0); Hemoglobin 17.8 g/dl (14.0-18.0); Imm Gran Abs Auto 0.03 X10*3/uL (0.00-0.03); Imm Gran Pct Auto 0.3 % (0.0-0.4); Lymphocytes Absolute Auto 3.5 X10*3/uL (1.2-4.9); Lymphocytes Percent Auto 32.1 % (20-40); Mean Corpuscular HGB Conc 34.2 g/dl (31.0-36.0); Mean Corpuscular Hemoglobin 29.8 pg (27.0-33.0); Mean Corpuscular Volume 87.1 fL (80.0-98.0); Mean Platelet Volume 11.1 fL (9.4-12.4); Monocytes Absolute Auto 1.1 X10*3/uL (0.1-1.2); Monocytes Percent Auto 10.1 % (2-11); Neutrophils Absolute Auto 5.9 x10*3/uL (2.0-8.3); Neutrophils Percent Auto 54.1 % (45-73); Platelet Count 246 X10*3/uL (160-400); Red Blood Count 5.98 X10*6/uL (4.60-5.80); Red Cell Distribution Width 13.6 % (11.0-16.0); White Blood Count 10.8 X10*3/uL (4.8-10.8)
[2023-11-22 12:57] LABS: COVID-19 Test Negative (Negative); IDNOW Serial# 08D9AD1C
[2023-11-22 12:58] LABS: IDNOW Serial# 152EDE1D; Influenza A Negative (Negative); Influenza B2 Negative (Negative)
--- NOTE | 2023-11-22 13:21 | PC.NURSE ---
stroke alert called 1310- transported to CT by Aron., RN CT made aware
[2023-11-22] MEDS: iohexoL 350 MG/ML 100 ML INFUS..BTL IV (13:29)
[2023-11-22 13:39] LABS: Anion Gap 17 (12-20); Blood Urea Nitrogen 17 mg/dL (9-16); Calcium 9.7 mg/dL (8.4-10.2); Carbon Dioxide 22 mmol/L (22-29); Chloride 109 mmol/L (96-108); Creatinine Clr Calc Pharmacy 59.1; Estimated Glomerular Filt Rate 58; Glucose Random 148 mg/dL (60-115); Lipase 27 U/L (8-78); Magnesium 1.9 mg/dL (1.6-2.6); Potassium 3.2 mmol/L (3.3-5.1); Sodium 145 mmol/L (135-145)
[2023-11-22 13:44] LABS: Prothrombin Time Whole Bld POC 13.1 sec (11.1-13.5); ~PT, ~INR - Anti Coag Clinic 1.1 (0.9-1.1)
--- NOTE | 2023-11-22 13:44 | MHC.EDTECH ---
this pct did the poc pt/inr tx and fsbs poc tx while pt was in CT SCAN.
[2023-11-22 13:45] LABS: Glucose, Whole Blood 141 mg/dL (60-115)
--- NOTE | 2023-11-22 13:46 | MHC.EDTECH ---
POC PT/INR results; PT RESULT : 13.1 sec INR RESULT: 1.1
[2023-11-22 13:58] VITALS: BP 154/93; BP 154/99; BP 168/91; PULSE 54; PULSE 64; PULSE 68
[2023-11-22 14:10] VITALS: BP 154/93; PULSE 70; RESP 18; O2SAT 96
[2023-11-22] MEDS: Potassium Chloride ER 20 MEQ TAB.ER.PRT PO (14:19)
[2023-11-22] MEDS: Meclizine HCl 25 MG TABLET PO (14:19)
[2023-11-22 14:27] LABS: Appearance Urine Clear; Color Urine Yellow; Glucose Urine UA Negative (Negative); Leukocyte Esterase Urine Negative (Negative); Nitrite Urine Negative (Negative); PH 7.5 (5.0-9.0); Specific Gravity - Urine >= 1.030 (1.005-1.025); Urine Blood Negative (Negative); Urine Ketones Negative (Negative); Urine Protein Negative (Neg-Trace)
[2023-11-22] MEDS: 0.9 % Sodium Chloride 1,000 ML 999 ML IV (16:16)
[2023-11-22 16:54] LABS: Alanine Aminotransferase 39 U/L (0-40); Albumin Level 4.1 g/dL (3.5-5.0); Alkaline Phosphatase 54 U/L (39-117); Aspartate Amino Transferase 25 U/L (5-37); Bilirubin Direct 0.3 mg/dL (0.0-0.5); Bilirubin Total 1.2 mg/dL (0.0-1.0); Total Protein 7.6 g/dL (6.5-8.0)
[2023-11-22 17:01] LABS: Ammonia 31 umol/L (13-55)
== END 2023-11-22 18:19 | disposition home or self-care (01) ==
PROVIDERS: Physician Assistant Medical; Emergency Provider Emergency Medicine; PCP Internal Medicine
DX: R42 Dizziness and giddiness (principal); R51.9 Headache, unspecified; I10 Essential (primary) hypertension; Z11.52 Encounter for screening for COVID-19; R29.700 NIHSS score 0; Z79.899 Other long term (current) drug therapy; Z79.82 Long term (current) use of aspirin
CPT/HCPCS: 36415; 70450; 70496; 70498; 80048; 80076; 81003; 82140; 82947; 83690; 83735; 85025; 85610; 87502; 87635; 96360; 99284; Q9967

== ENCOUNTER 2023-11-27 10:21 | Outpatient (AMB) | payer MEDICARE, SELFPAY ==
--- NOTE | 2023-11-27 10:35 | MHC.PC.OV ---
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 Element Winder: Not Required per policy Accompanied by: Self / Same As Patient Allergies amoxicillin [AMOXICILLIN] Allergy (Intermediate, Verified 11/27/23 14:03) dizziness,nausea Medication List - Last Reconciled 11/27/23 by Dev Pierre MD alclometasone 0.05% 1 appl topical BID amlodipine 10 mg PO DAILY aspirin (Adult Low Dose Aspirin) 81 mg PO DAILY bisoprolol-hydrochlorothiazide 5-6.25 mg 1 tab PO DAILY finasteride (Proscar) 5 mg PO DAILY 90 days ketoconazole 2% 1 appl topical BID losartan 100 mg PO DAILY naproxen 500 mg PO DAILY Tobacco use date assessed: 11/27/23 Fall risk assessment: No Falls in past year Last assessed Fall Risk: 11/27/23 Dental Screening Dental Screen Date: 11/27/23 Did you have a dental visit in the last 12 months?: Yes Did you have a dental problem in the last 6 months where you did not have access to dental care?: No Was dental information given to patient?: Patient has dentist [place] [facility] [place] up/Orthostatic dizziness HPI Details 73-year-old male presents to the office for ER visit follow-up. Patient presented to the ER with 1 episode of dizziness. Symptoms started suddenly, associated with profuse sweating. No loss of consciousness or fall. In the ER, patient underwent a complete workup. Was discharged home and advised to follow-up here on no medications. Patient reports that his symptoms have completely resolved. Does not have any symptoms of tinnitus or unsteady gait either. No nausea or vomiting. [facility] Medical History Class 2 severe obesity with body mass index (BMI) of 35 to 39.9 with serious comorbidity Osteoarthritis of neck Benign essential HTN Diverticulosis Bilateral primary osteoarthritis of knee Surgical History History of tooth extraction History of colonoscopy H/O removal of neck cyst History of knee replacement procedure of left knee History of knee replacement procedure of right knee History of tonsillectomy History of appendectomy Family History Father No problems noted. Mother No problems noted. Brother Healthy adult Son No problems noted. Son No problems noted. Daughter Healthy adult Social History Housing: House Alcohol intake: current Alcohol intake frequency: holidays/special occasions only Patient Tobacco Use Status: Former Tobacco user (once a month) Tobacco use type: Cigar e-Cigarette/Vaping Use: Never Used Second Hand Smoke Exposure: Yes service: No Current occupational status: retired Cognitive needs: No Hearing needs: No Vision needs: Yes (glasses) Questionnaire PHQ-9 Over the last 2 weeks, how often have you been bothered by any of the following problems? 1. Little interest or pleasure in doing things: not at all 2. Feeling down, depressed, or hopeless: not at all 3. Trouble falling or staying asleep, or sleeping too much: not at all 4. Feeling tired or having little energy: not at all 5. Poor appetite or overeating: not at all 6. Feeling bad about yourself - or that you are a failure or have let yourself or your family down: not at all 7. Trouble concentrating on things, such as reading the newspaper or watching television: not at all 8. Moving or speaking so slowly that other people could have noticed. Or the opposite - being so fidgety or restless that you have been moving around a lot more than usual: not at all 9. Thoughts that you would be better off or of hurting yourself in some way: not at all Total score: 0 Depression Screening Interpretation: Negative Depression Screening Done: Yes Source: Developed by Drs. Homero Ricardo, Meredith Khalil, Bin He and colleagues, with an educational juan miguel from [employer] Thrive Questionnaire Date Thrive assessed: 11/27/23 I am a: Patient What is your living situation today?: I have a steady place to live Within the past 12 months, did the food you bought not last and you didn't have the money to get more?: Never true Within the past 12 months, did you worry whether your food would run out before you got money to buy more?: Never true Do you have trouble paying for medicines?: No Do you have trouble getting transportation to medical appointments?: No Do you have trouble paying your heating and electricity bill?: No Do you have trouble taking care of your child, family member or friend?: No Do you have trouble with day-to-day activities such as bathing, preparing meals, shopping, managing finances, etc.?: No Are you currently unemployed and looking for a job?: No Are you interested in more education?: No Currently or been in a relationship where the following occur: no concerns reported THRIVE Score: 0 AUDIT C Alcohol Use Questionnaire (AUDIT-C) 1. How often do you have a drink containing alcohol?: Monthly or less 2. How many drinks containing alcohol do you have on a typical day when you are drinking?: 1 or 2 Total Score: 1 QUAN-7 AMB Questionnaire QUAN-7 Date QUAN - 7 assessed: 11/27/23 Feeling nervous, anxious, or on edge: 0 = Not at all Not being able to stop or control worryin = Not at all Worrying too much about different things: 0 = Not at all Trouble relaxin = Not at all Being so restless that it is hard to sit still: 0 = Not at all Becoming easily annoyed or irritable: 0 = Not at all Feeling afraid as if something awful might happen: 0 = Not at all Total QUAN-7 score (0-4 normal; 5-9 mild; 10-14 moderate; 15-21 severe): 0 Source: Developed by Drs. Homero Ricardo, Meredith Khalil, Bin He and colleagues, with an educational juan miguel from [employer] Physical exam (Primary Care) Vital Signs: Last Vital Signs Pulse 97 11/27/23 10:37 BP 148/86 H 11/27/23 10:37 Pulse Ox 97 11/27/23 10:37 Oxygen Delivery Method Room Air 11/27/23 10:37 Care Plan Goal for BP management: Blood pressure is in range. Continue current medications. BMI result Body Mass Index 35.2 BMI Assessment/Plan discussion: High (1 lb per week weight loss suggested.) Tobacco/Smoking Status: Tobacco use Status Tobacco use date assessed 11/27/23 11/27/23 10:44 Patient Tobacco Use Status Former Tobacco user (once a 11/27/23 10:44 month) Tobacco use type Cigar 11/27/23 10:44 e-Cigarette/Vaping Use Never Used 11/27/23 10:44 PHQ-9: PHQ-9 Score PHQ-9: Total score 0 11/27/23 10:44 Depression Screening Interpretation: Negative Thrive Assessment: Date of Thrive Assessment Date Thrive assessed 11/27/23 11/27/23 10:44 Currently or been in a relationship where the following occur: no concerns reported Assessment and Plan Assessment & Plan (1) Dizziness: Code(s): R42 - Dizziness and giddiness Plan: Reassurance. Patient had a single episode of dizziness, benign positional vertigo could be a possibility. As all his symptoms have resolved, no medications are warranted at this point. Medications: Refilled naproxen 500 mg PO DAILY 30 tabs 0RF Coding Level of Care Code Est Pt Level 3 (09739) Diagnoses Dizziness R42
[2023-11-27 10:37] VITALS: BP 148/86; PULSE 97; O2SAT 97; BMI 35.2
== END 2023-11-27 11:18 | disposition home or self-care (01) ==
PROVIDERS: PCP Internal Medicine; Visit Provider Internal Medicine
DX: R42 Dizziness and giddiness (principal)
CPT/HCPCS: 99213

== ENCOUNTER 2024-01-12 09:07 | Outpatient (AMB) | payer MEDICARE, SELFPAY ==
--- NOTE | 2024-01-12 09:11 | A.OFFPC_ITS ---
Vital Signs 01/12/24 09:12 Height 5 ft 6 in Weight 218 lb 4 oz BMI 35.2 BP 110/70 Blood Pressure Location Lt brachial Position Sitting Pulse 80 Pulse Source Pulse Oximeter Pulse Oximetry (%) 96 Oxygen Delivery Method Room Air Intake Visit Reasons: 6mth f/u Intake Note: Patient is here to follow up on HTN. 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 per policy Accompanied by: Self / Same As Patient Allergies amoxicillin [AMOXICILLIN] Allergy (Intermediate, Verified 01/12/24 10:21) dizziness,nausea Medication List - Last Reconciled 01/12/24 by Dev Pierre MD alclometasone 0.05% 1 appl topical BID amlodipine 10 mg PO DAILY aspirin (Adult Low Dose Aspirin) 81 mg PO DAILY bisoprolol-hydrochlorothiazide 5-6.25 mg 1 tab PO DAILY finasteride (Proscar) 5 mg PO DAILY 90 days ketoconazole 2% 1 appl topical BID losartan 100 mg PO DAILY naproxen 500 mg PO DAILY Tobacco use date assessed: 01/12/24 Fall risk assessment: No Falls in past year Last assessed Fall Risk: 01/12/24 Dental Screening Dental Screen Date: 01/12/24 Did you have a dental visit in the last 12 months?: Yes Did you have a dental problem in the last 6 months where you did not have access to dental care?: No Was dental information given to patient?: Patient has dentist HPI 6mth f/u HPI Details 73-year-old male presents to the office to discuss his chronic medical conditions. Patient is at baseline state of health. The vertigo symptoms he had earlier in the last office visit has completely resolved. Continues to use Naprosyn intermittently for his arthritis. Sees a urologist for elevated PSA. Not following any particular diet. [facility] Medical History (Updated 01/12/24 @ 10:23 by Dev Pierre MD) Enlarged prostate Class 2 severe obesity with body mass index (BMI) of 35 to 39.9 with serious comorbidity Osteoarthritis of neck Benign essential HTN Diverticulosis Bilateral primary osteoarthritis of knee Surgical History History of tooth extraction History of colonoscopy H/O removal of neck cyst History of knee replacement procedure of left knee History of knee replacement procedure of right knee History of tonsillectomy History of appendectomy Family History Father No problems noted. Mother No problems noted. Brother Healthy adult Son No problems noted. Son No problems noted. Daughter Healthy adult Social History Housing: House Alcohol intake: current Alcohol intake frequency: holidays/special occasions only Patient Tobacco Use Status: Former Tobacco user (once a month) Tobacco use type: Cigar e-Cigarette/Vaping Use: Never Used Second Hand Smoke Exposure: Yes service: No Current occupational status: retired Cognitive needs: No Hearing needs: No Vision needs: Yes (glasses) Questionnaire Thrive Questionnaire Date Thrive assessed: 11/27/23 QUAN-7 AMB Questionnaire QUAN-7 Date QUAN - 7 assessed: 11/27/23 Source: Developed by Drs. Homero Ricardo, Meredith Khalil, Bin He and colleagues, with an educational juan miguel from [email or web address]. Physical exam (Primary Care) Vital Signs: Last Vital Signs Pulse 80 01/12/24 09:12 BP 110/70 01/12/24 09:12 Pulse Ox 96 01/12/24 09:12 Oxygen Delivery Method Room Air 01/12/24 09:12 Care Plan Goal for BP management: Blood pressure is in range. Continue current medications. BMI result Body Mass Index 35.2 BMI Assessment/Plan discussion: High (1 lb per week weight loss suggested.) BMI High, discussed plan: lifestyle, weight reduction, dietary and physical activity Tobacco/Smoking Status: Tobacco use Status Tobacco use date assessed 01/12/24 01/12/24 09:17 Patient Tobacco Use Status Former Tobacco user (once a 01/12/24 09:17 month) Tobacco use type Cigar 01/12/24 09:17 e-Cigarette/Vaping Use Never Used 01/12/24 09:17 Thrive Assessment: Date of Thrive Assessment Date Thrive assessed 11/27/23 01/12/24 09:17 Advance Care Planning discussion: Exists, not on file Date of discussion: 01/12/24 Who was present: Patient Forms completed: Health Care Proxy Actual minutes spent: 5 Const General: cooperative and healthy appearing Nutritional Appearance: well nourished Orientation/consciousness: patient oriented x3 Limitations: no limitations HENMT Head: Yes normal to inspection Eyes General: appearance normal, both eyes and all related structures Neck Neck: Yes normal visual inspection Chest Chest palpation & inspection: normal palpation of entire chest wall Resp Effort & Inspection: normal respiratory effort Neuro General: patient oriented x3 Assessment and Plan Assessment & Plan (1) Enlarged prostate: Code(s): N40.0 - Benign prostatic hyperplasia without lower urinary tract symptoms Plan: Patient sees a urologist. 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 Continue current medications. (3) Class 2 severe obesity with body mass index (BMI) of 35 to 39.9 with serious comorbidity: Code(s): E66.01 - Morbid (severe) obesity due to excess calories Plan: Counseling on the importance of diet and exercise done. (4) Benign essential HTN: Code(s): I10 - Essential (primary) hypertension Plan: Blood pressure is stable. Continue current medications. Medications: Refilled naproxen 500 mg PO DAILY 30 tabs 0RF bisoprolol-hydrochlorothiazide 5-6.25 mg 1 tab PO DAILY 90 tabs 1RF finasteride (Proscar) 5 mg PO DAILY 90 days 90 tabs 3RF C61 - Malignant neoplasm of prostate amlodipine 10 mg PO DAILY 90 tabs 1RF losartan 100 mg PO DAILY 90 tabs 1RF Coding Level of Care Code Est Pt Level 4 (07627) Diagnoses Enlarged prostate N40.0 Loose left total knee arthroplasty T84.033A Class 2 severe obesity with body mass index (BMI) of 35 to 39.9 with serious comorbidity E66.01 Benign essential HTN I10 Additional Codes Vital Signs *Quality* - Advance Care Planning discussion: Exists, not on file ([id number])
[2024-01-12 09:12] VITALS: BP 110/70; PULSE 80; O2SAT 96; BMI 35.2
== END 2024-01-12 10:12 | disposition home or self-care (01) ==
PROVIDERS: PCP Internal Medicine; Visit Provider Internal Medicine
DX: N40.0 Benign prostatic hyperplasia without lower urinary tract symptoms (principal); T84.033A Mechanical loosening of internal left knee prosthetic joint, initial encounter; E66.01 Morbid (severe) obesity due to excess calories; Z68.44 Body mass index [BMI] 60.0-69.9, adult; I10 Essential (primary) hypertension; Z00.00 Encounter for general adult medical examination without abnormal findings
CPT/HCPCS: 1123F; 99214

== ENCOUNTER 2024-01-28 13:11 | Emergency (ER) | payer MEDICARE, SELFPAY ==
--- NOTE | ~2024-01-28 | US_ITS ---
EXAMINATION: US VENOUS ULTRASOUND WITH DOPPLER LOWER EXTREMITY, RIGHT CLINICAL INFORMATION: Calf pain COMPARISON: None available. TECHNIQUE: Ultrasound of the deep veins is performed from the hip to the calf with compression sonography and color and pulse Doppler assessment. Spectral analysis with color-flow imaging is performed. FINDINGS: There is normal venous compression and respiratory variation and augmented flow. The visualized common femoral vein, superficial femoral vein, profunda femoral vein, popliteal vein, and the trifurcation region shows no evidence of deep venous thrombosis. There is no significant popliteal fossa cyst. Contralateral common femoral vein was interrogated and was unremarkable in appearance. US/US venous duplex LE RT IMPRESSION: No DVT demonstrated in the right lower extremity.
--- NOTE | ~2024-01-28 | XR_ITS ---
Indication: Pain EXAMINATION: Right ankle, right foot. 2. Detail views of the right ankle demonstrate degenerative changes. No convincing evidence for an acute fracture or dislocation. 3 views of the right foot demonstrate degenerative changes. There is no evidence for an acute fracture or dislocation. No bony erosion is seen. XR/XR ankle RT min 3V IMPRESSION: Degenerative changes are noted here in the foot and ankle. No convincing evidence for an acute fracture or dislocation. There is soft tissue swelling about the ankle. Correlation recommended clinically.
--- NOTE | ~2024-01-28 | XR_ITS ---
Indication: Pain EXAMINATION: Right ankle, right foot. 2. Detail views of the right ankle demonstrate degenerative changes. No convincing evidence for an acute fracture or dislocation. 3 views of the right foot demonstrate degenerative changes. There is no evidence for an acute fracture or dislocation. No bony erosion is seen. XR/XR foot RT min 3V IMPRESSION: Degenerative changes are noted here in the foot and ankle. No convincing evidence for an acute fracture or dislocation. There is soft tissue swelling about the ankle. Correlation recommended clinically.
[2024-01-28 13:28] VITALS: BP 132/91; PULSE 73; RESP 16; TEMP 36.6; O2SAT 97; BMI 47.0
--- NOTE | 2024-01-28 13:30 | ED.GENADULT ---
HPI - General Adult General Chief complaint: Extremity Injury, Lower Stated complaint: Pain/swelling R ankle no injury Time Seen by Provider: 01/28/24 14:59 Source: patient Mode of arrival: ambulatory Limitations: no limitations History of Present Illness HPI narrative: Patient is a 73-year-old male with history of HTN presenting to the emergency department with complaint of right ankle pain and swelling which began last night. He does note that he drank several beers last night. States that he is having difficulty bearing weight on his ankle due to pain and swelling. Denies any calf pain. Denies any chest pain or shortness of breath. Denies any weakness, numbness, tingling. He did not take any [id number] medications for his symptoms at home. MD complaint: Right ankle pain and swelling Onset (ago): hour(s) Location: right and lower extremity Severity: severe Quality: aching Pain Consistency: constant Relieving factors: rest Exacerbating factors: movement Associated symptoms: denies other symptoms Treatments prior to arrival: none Related Data Home Medications Medication Instructions Recorded Confirmed aspirin 81 mg tablet,delayed 81 mg PO DAILY 11/20/20 10/22/23 release (Adult Low Dose Aspirin) alclometasone 0.05 % topical cream 1 appl topical BID 05/16/22 10/22/23 ketoconazole 2 % topical cream 1 appl topical BID 05/16/22 10/22/23 Previous Rx's Medication Instructions Recorded amlodipine 10 mg tablet 10 mg PO DAILY #90 tabs 01/12/24 bisoprolol 5 1 tab PO DAILY #90 tabs 01/12/24 mg-hydrochlorothiazide 6.25 mg tablet finasteride 5 mg tablet (Proscar) 5 mg PO DAILY 90 days #90 tabs 01/12/24 losartan 100 mg tablet 100 mg PO DAILY #90 tabs 01/12/24 naproxen 500 mg tablet 500 mg PO DAILY #30 tabs 01/14/24 prednisone 20 mg tablet 40 mg (2 x 20 mg) PO DAILY #10 tabs 01/28/24 Allergies Allergy/AdvReac Type Severity Reaction Status Date / Time amoxicillin [AMOXICILLIN] Allergy Intermediate dizziness,n Verified 01/12/24 10:21 ausea Review of Systems Review of Systems: As per HPI. Yes all other systems are reviewed and are negative Constitutional: Constitutional: Reports as per HPI [facility] Past Medical History Medical History (Updated 01/28/24 @ 15:35 by Usha Mercer NP) Enlarged prostate Class 2 severe obesity with body mass index (BMI) of 35 to 39.9 with serious comorbidity Osteoarthritis of neck Benign essential HTN Diverticulosis Bilateral primary osteoarthritis of knee Surgical History History of tooth extraction History of colonoscopy H/O removal of neck cyst History of knee replacement procedure of left knee History of knee replacement procedure of right knee History of tonsillectomy History of appendectomy Family History Family History Father No problems noted. Mother No problems noted. Brother Healthy adult Son No problems noted. Son No problems noted. Daughter Healthy adult Social History Social History Housing: House Alcohol intake: current Alcohol intake frequency: holidays/special occasions only Patient Tobacco Use Status: Former Tobacco user (once a month) Tobacco use type: Cigar e-Cigarette/Vaping Use: Never Used Second Hand Smoke Exposure: Yes Advance Directives: Yes Advance Directives Information Provided: Yes Advance Directives on File: No service: No Current occupational status: retired Cognitive needs: No Hearing needs: No Vision needs: Yes (glasses) Physical Exam ED Vital Signs: Vital Signs - 24 hr 01/28/24 13:28 Temperature 97.9 F Pulse Rate 73 Respiratory Rate 16 Blood Pressure 132/91 H Pulse Oximetry 97 Oxygen Delivery Method Room Air BMI result Body Mass Index 47.0 Vital signs have been reviewed and appear to be correct. Blood pressure normal. Heart rate normal. Respiratory rate normal. Temperature normal. Oxygen saturation normal. Const General: cooperative, healthy appearing and no acute distress Orientation/consciousness: oriented to person, oriented to place, oriented to time and patient oriented x3 Limitations: no limitations HENMT Head: Yes normocephalic and Yes atraumatic Ears: external ears normal General nose exam: Normal external nose present Face and sinus: Yes face symmetric Mouth: oropharynx normal and moist mucous membranes Throat: Yes uvula midline Eyes Pupils: Equal, round and reactive pupils present Neck Neck: Yes normal visual inspection and Yes supple Resp Effort & Inspection: normal respiratory effort and able to speak in complete sentences Auscultation: clear to auscultation bilaterally Cardio Rate: regular rate Rhythm: regular rhythm Heart sounds: S1 normal heart sound present and S2 normal heart sound present GI Palpation (GI): Soft to palpation and nontender Auscultation: normoactive bowel sounds General: Yes no CVA tenderness Back/Spine/Pelvis Back: no CVA tenderness Skin General skin exam: elasticity normal and turgor normal Neuro General: oriented to person, oriented to place, oriented to time, patient oriented x3, moves all extremities, no focal motor deficits and CN's II-XI intact bilaterally Cranial nerves: Yes Equal, round and reactive pupils present Cognition (Neuro): normal cognition Extrem General: Yes full ROM, Yes no pedal edema and Yes no calf tenderness Right lower extremity: ankle Details: tenderness (diffuse), swelling Details: diffusely and normal ROM; no unusual warmth and foot Details: toes with normal ROM and vascular exam Details: dorsalis pedis pulse present and posterior tibial pulse present Psych Mental Status: mental status grossly normal Affect: normal affect Thought process: Normal thought process present Course Course Course Narrative: This is an RME: Additional HPI, ROS, PE not included below will be deferred to primary provider. This is a 73 y/o M presenting to the ER with complaints of right ankle and calf pain since last night. No trauma or injury. Reporting some swelling in his right calf. Tenderness palpation along the medial lateral malleolus as well as in standing into the right foot, warmth with slight erythema noted. Positive Homans sign. Strong DP pulse. Further ER evaluation needed. Plan: X-rays, ultrasound, labs Medical Decision Making Medical Decision Making MDM Narrative: Patient is a 73-year-old male with history of HTN presenting to the emergency department with complaint of right ankle pain and swelling which began last night. On exam patient is awake, A+Ox3, VS WNL, afebrile, normal neurological exam without focal deficits, physical exam findings as above. Given reported symptoms and physical exam findings, initial differential includes gout flare, osteoarthritis, strain or sprain, DVT. Labs notable for mild leukocytosis, elevated uric acid. X-rays notable for degenerative changes to right ankle and foot with soft tissue swelling, no acute fracture. No evidence of DVT on ultrasound. My interpretation is in agreement with the radiologist's interpretation. Results discussed with patient and all questions answered. Will treat gout flare with short course of prednisone, advised patient to begin using naproxen once completing course of prednisone. Instructed patient to follow-up with primary care provider. Return precautions discussed at bedside. Patient verbalized understanding of and agreement with plan. Differential Diagnosis Differential Diagnoses: The differential diagnosis associated with the presentation includes As per MDM. Lab Data [facility] Lab Attestation statement: I reviewed the patient's lab results. As per MDM. 01/28/24 14:51 01/28/24 14:51 Labs: Lab Results 01/28/24 Range/Units 14:51 WBC 14.7 H (4.8-10.8) X10*3/uL RBC 5.58 (4.60-5.80) X10*6/uL Hgb 16.6 (14.0-18.0) g/dl Hct 47.8 (42.0-52.0) % MCV 85.7 (80.0-98.0) fL MCH 29.7 (27.0-33.0) pg MCHC 34.7 (31.0-36.0) g/dl RDW 14.2 (11.0-16.0) % Plt Count 244 (160-400) X10*3/uL MPV 10.7 (9.4-12.4) fL Immature Gran % (Auto) 0.3 (0.0-0.4) % Neut % (Auto) 73.6 H (45-73) % Lymph % (Auto) 14.8 L (20-40) % Grainger % (Auto) 10.5 (2-11) % Eos % (Auto) 0.5 (0-4) % Baso % (Auto) 0.3 (0-2) % Lymph # (Auto) 2.2 (1.2-4.9) X10*3/uL Grainger # (Auto) 1.5 H (0.1-1.2) X10*3/uL Eos # (Auto) 0.1 (0.0-0.4) X10*3/uL Baso # (Auto) 0.1 (0.0-0.2) X10*3/uL Abs Immat Gran (auto) 0.05 H (0.00-0.03) X10*3/uL Absolute Neuts (auto) 10.8 H (2.0-8.3) x10*3/uL Absolute Nucleated RBC 0.000 (0.0-0.012) X10*3/uL Nucleated RBC % (auto) 0.0 (0.0-0.2) /100WBC Smear Tech's Comments VERIFIED Sodium 141 (135-145) mmol/L Potassium 3.6 (3.3-5.1) mmol/L Chloride 105 (96-108) mmol/L Carbon Dioxide 25 (22-29) mmol/L Anion Gap 15 (12-20) BUN 16 (9-16) mg/dL Creatinine 1.13 (0.5-1.4) mg/dL Estim Creat Clear Calc 75.0 Estimated GFR > 60 Random Glucose 123 H (60-115) mg/dL Uric Acid 8.5 H (3.4-7.0) mg/dL Calcium 9.7 (8.4-10.2) mg/dL Total Bilirubin 1.2 H (0.0-1.0) mg/dL AST 35 (5-37) U/L ALT 57 H (0-40) U/L Alkaline Phosphatase 56 (39-117) U/L C-Reactive Protein 1.87 H (< or = 0.50) mg/dL Total Protein 7.6 (6.5-8.0) g/dL Albumin 4.1 (3.5-5.0) g/dL Independent Interpretation I performed an independent interpretation of an: Plain X-Ray and Ultrasound Interpretation: No evidence of DVT on ultrasound Degenerative changes noted to foot and ankle with soft tissue swelling, no acute fracture Radiology Impression Discussion of test interpretation with radiology: I have reviewed the radiologist's reading. Radiologist Impression: XR/XR foot RT min 3V IMPRESSION: Degenerative changes are noted here in the foot and ankle. No convincing evidence for an acute fracture or dislocation. There is soft tissue swelling about the ankle. Correlation recommended clinically. US/US venous duplex LE RT IMPRESSION: No DVT demonstrated in the right lower extremity. External Record Review External record reviewed: Inpatient record, Office record and Outpatient record Prescription Management I considered prescription management with: Other Discharge Plan Discharge Clinical Impression: Gout attack Patient Disposition: Home, Self-Care Instructions: Low Purine Diet (ED), Gout (ED), Swollen Ankle Joint (ED) Additional Instructions: You were evaluated in the emergency department today for right ankle pain and swelling. Your evaluation shows that your symptoms are likely due to a gout flare. Your ultrasound did not show evidence of a DVT, also known as a blood clot. You are being prescribed a short course of steroids to decrease inflammation. Once you have completed the course of steroids, you should begin using naproxen twice daily. You should also keep your ankle elevated while at rest. Please follow-up with your primary care provider. Return to the emergency department if you develop increased swelling, redness, warmth, fever or any other concerning symptoms. Prescriptions: New prednisone 20 mg tablet 40 mg PO DAILY Qty: 10 0RF No Action naproxen 500 mg tablet 500 mg PO DAILY Qty: 30 0RF aspirin [Adult Low Dose Aspirin] 81 mg tablet,delayed release (DR/EC) 81 mg PO DAILY alclometasone 0.05 % cream 1 appl topical BID ketoconazole 2 % cream 1 appl topical BID amlodipine 10 mg tablet 10 mg PO DAILY Qty: 90 1RF bisoprolol-hydrochlorothiazide 5-6.25 mg tablet 1 tab PO DAILY Qty: 90 1RF finasteride [Proscar] 5 mg tablet 5 mg PO DAILY 90 Days Qty: 90 3RF losartan 100 mg tablet 100 mg PO DAILY Qty: 90 1RF
[2024-01-28 14:57] LABS: Basophils Absolute Auto 0.1 X10*3/uL (0.0-0.2); Basophils Percent Auto 0.3 % (0-2); Eosinophils Absolute Auto 0.1 X10*3/uL (0.0-0.4); Eosinophils Percent Auto 0.5 % (0-4); Hematocrit 47.8 % (42.0-52.0); Hemoglobin 16.6 g/dl (14.0-18.0); Imm Gran Abs Auto 0.05 X10*3/uL (0.00-0.03); Imm Gran Pct Auto 0.3 % (0.0-0.4); Lymphocytes Absolute Auto 2.2 X10*3/uL (1.2-4.9); Lymphocytes Percent Auto 14.8 % (20-40); MANUAL DIFF FLAG SCAN; Mean Corpuscular HGB Conc 34.7 g/dl (31.0-36.0); Mean Corpuscular Hemoglobin 29.7 pg (27.0-33.0); Mean Corpuscular Volume 85.7 fL (80.0-98.0); Mean Platelet Volume 10.7 fL (9.4-12.4); Monocytes Absolute Auto 1.5 X10*3/uL (0.1-1.2); Monocytes Percent Auto 10.5 % (2-11); Neutrophils Absolute Auto 10.8 x10*3/uL (2.0-8.3); Neutrophils Percent Auto 73.6 % (45-73); Platelet Count 244 X10*3/uL (160-400); Red Blood Count 5.58 X10*6/uL (4.60-5.80); Red Cell Distribution Width 14.2 % (11.0-16.0); SCAN SMEAR FLAG 1; White Blood Count 14.7 X10*3/uL (4.8-10.8)
[2024-01-28 15:12] LABS: Alanine Aminotransferase 57 U/L (0-40); Albumin Level 4.1 g/dL (3.5-5.0); Alkaline Phosphatase 56 U/L (39-117); Anion Gap 15 (12-20); Aspartate Amino Transferase 35 U/L (5-37); Bilirubin Total 1.2 mg/dL (0.0-1.0); Blood Urea Nitrogen 16 mg/dL (9-16); C Reactive Protein 1.87 mg/dL (< or = 0.50); Calcium 9.7 mg/dL (8.4-10.2); Carbon Dioxide 25 mmol/L (22-29); Chloride 105 mmol/L (96-108); Estimated Glomerular Filt Rate > 60; Glucose Random 123 mg/dL (60-115); Potassium 3.6 mmol/L (3.3-5.1); Sodium 141 mmol/L (135-145); Total Protein 7.6 g/dL (6.5-8.0); Uric Acid 8.5 mg/dL (3.4-7.0)
[2024-01-28 15:15] LABS: SLIDE REVIEW VERIFIED
[2024-01-28 15:33] LABS: Erythrocyte Sedimentation Rate 7 MM/HR (0-15)
== END 2024-01-28 15:54 | disposition home or self-care (01) ==
PROVIDERS: Physician Assistant Medical; Emergency Provider Emergency Medicine; PCP Internal Medicine
DX: M10.9 Gout, unspecified (principal); M79.661 Pain in right lower leg; I10 Essential (primary) hypertension; Z88.0 Allergy status to penicillin
CPT/HCPCS: 36415; 73610; 73630; 80053; 84550; 85025; 85652; 86140; 93971; 99281; 99284

== ENCOUNTER 2024-02-10 11:02 | Outpatient (REF) | payer MEDICARE, SELFPAY ==
[2024-02-10 13:04] LABS: PSA,Total (Free>4and<10) 3.77 ng/mL (0.00-4.00)
== END 2024-02-10 11:03 | disposition home or self-care (01) ==
LOC: HO.LAB 11:02
PROVIDERS: Visit Provider Urology
DX: Z12.5 Encounter for screening for malignant neoplasm of prostate (principal); R97.20 Elevated prostate specific antigen [PSA]
CPT/HCPCS: 36415; 84153

== ENCOUNTER 2024-02-23 09:48 | Outpatient (AMB) | payer MEDICARE, SELFPAY ==
--- NOTE | 2024-02-23 09:50 | A.OFFVIS_ITS ---
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 He was seen on 10/22/2023, discussed PSA- 07/24/2023 was 5.08 ng/mL. The nathanael ent was started on finasteride 5 mg daily. He was sent for renal ultrasound and I have reviewed results. He states he has been compliant with the finasteride. He states his urinary flow has been good. Renal ultrasound 11/03/2023--estimated prostate volume 91 mL, kidneys negative for stones or hydronephrosis. Repeat PSA 02/10/2024 is 3.77 ng/mL. Urinalysis leukocytes negative, blood trace. Bladder scan PVR 13 mL, Review of chart: 10/22/2020 Nolan is a 73 year old male who is here for evaluation for elevated PSA. 07/24/2023--Elevated PSA 5.08 ng/mL, Past Medical history of Class 2 severe obesity with body mass index (BMI) of 35 to 39.9 Benign essential HTN Bilateral primary osteoarthritis of knee Surgical history includes but is not limited to:History of knee replacement procedure of B/L knees, appendectomy The patient has feeling of incomplete bladder emptying and weak urinary stream, denies daytime urinary frequency, urinary incontinence, nocturia x 2, denies hematuria, or dysuria, I have discussed that elevated PSA may indicate changes in the prostate including benign enlargement, cancer and an inflammatory condition. I have discussed doing a biopsy has risks and that management in early detection of prostate cancer may include active surveillance. Exam- Prostate - smooth, enlarged. Discussed plan to Repeat PSA, US Retroperitoneum 02/23/24- monitor PSA. continue finasteride. Follow-up in 9 months PSA prior. [facility] Medical History Enlarged prostate Class 2 severe obesity with body mass index (BMI) of 35 to 39.9 with serious comorbidity Osteoarthritis of neck Benign essential HTN Diverticulosis Bilateral primary osteoarthritis of knee Surgical History History of tooth extraction History of colonoscopy H/O removal of neck cyst History of knee replacement procedure of left knee History of knee replacement procedure of right knee History of tonsillectomy History of appendectomy Family History Father No problems noted. Mother No problems noted. Brother Healthy adult Son No problems noted. Son No problems noted. Daughter Healthy adult Social History Housing: House Alcohol intake: current Alcohol intake frequency: holidays/special occasions only Patient Tobacco Use Status: Former Tobacco user (once a month) Tobacco use type: Cigar e-Cigarette/Vaping Use: Never Used Second Hand Smoke Exposure: Yes service: No Current occupational status: retired Cognitive needs: No Hearing needs: No Vision needs: Yes (glasses) Review of Systems Const All systems reviewed & are unremarkable except as noted in HPI and below Reports no additional complaints Eyes Reports no additional complaints ENT Reports no additional complaints Card Reports no additional complaints Resp Reports no additional complaints GI Reports no additional complaints Reports as per HPI Musc Reports no additional complaints Skin/Breast Reports system reviewed and no additional complaints, except as documented Neuro Reports no additional complaints Psych Reports no additional complaints Endo Reports no additional complaints John/Lymph Reports no additional complaints Aller/Immun Reports no additional complaints Office Procedures Post Void Residual Post Residual Void Post Void Residual (PVR): 13 [id number] Void Residual by ultrasound Results AMB Urinalysis, Automated UA Leukoctes 0 Jerman/uL Last Edit by VEGA Martines on 02/23/24 10:10 UA Nitrite Negative Last Edit by VEGA Martines on 02/23/24 10:10 UA Urobilinogen 0.2 mg/dL Last Edit by Monicahuseyin Vivek, YANNIA on 02/23/24 10:1 0 UA Protein 0 mg/dL Last Edit by Brent Doyle A on 02/23/24 10:10 UA pH 6.0 Last Edit by Brent Doyle, A on 02/23/24 10:10 UA Blood 10 Juan/uL Last Edit by Brent Doyle A on 02/23/24 10:10 UA Specific [place] 1.015 Last Edit by Brent Doyle A on 02/23/24 10: 10 UA Ketone Negative Last Edit by Brent Doyle A on 02/23/24 10:10 UA Bilirubin 0 mg/dL Last Edit by Brent Bustosmildred A on 02/23/24 10:10 UA Glucose 0 mg/dL Last Edit by Brent Bustosmildred A on 02/23/24 10:10 Results Reviewed Results Reviewed: Laboratory Last Values Urine pH (Auto) 6.0 02/23/24 10:08 Specific [place] (Auto) 1.015 02/23/24 10:08 Urine Protein (Auto) 0 mg/dL 02/23/24 10:08 Glucose (UA)(Auto) 0 mg/dL 02/23/24 10:08 Urine Ketones (Auto) Negative 02/23/24 10:08 Urine Blood (Auto) 10 Juan/uL 02/23/24 10:08 Urine Nitrite (Auto) Negative 02/23/24 10:08 Urine Bilirubin (Auto) 0 mg/dL 02/23/24 10:08 Urine Urobilinogen (Auto) 0.2 mg/dL 02/23/24 10:08 Leukocyte Esterase (Auto) 0 Jerman/uL 02/23/24 10:08 Date of Service: 11/03/23 EXAMINATION: US RETROPERITONEAL COMPLETE (RENAL) CLINICAL INFORMATION: Benign prostatic hyperplasia without lower urinary tract symptoms. COMPARISON: None available. TECHNIQUE: Real-time imaging of the kidneys and bladder. FINDINGS: RIGHT KIDNEY: 10.4 x 5.1 x 6.3 cm (SAG x AP x TRV). The kidney is normal in size, contour, and echogenicity. Renal cortical thickness is normal. No calculi or focal parenchymal lesions. No hydronephrosis. LEFT KIDNEY: 11.7 x 6.1 x 4.7 cm (SAG x AP x TRV). The kidney is normal in size, contour, and echogenicity. Renal cortical thickness is normal. No renal calculi or hydronephrosis. 2.2 cm simple appearing lower pole cyst for which no follow-up imaging is usually warranted. BLADDER: Well distended and normal. Bilateral ureteral jets are demonstrated. Prevoid bladder volume is 208 mL. Postvoid bladder volume is 64 mL. PROSTATE GLAND: 5.2 x 5.9 x 5.7 cm, volume 91 mL. Coarse calcifications are noted within the prostate gland. IMPRESSION: 1. No renal calculi or hydronephrosis of either kidney. 2. Enlarged prostate gland. 3. Prominent post void bladder residual of 64 mL. Assessment & Plan Assessment & Plan (1) Enlarged prostate: Code(s): N40.0 - Benign prostatic hyperplasia without lower urinary tract symptoms Category: Medical (2) Elevated PSA: Code(s): R97.20 - Elevated prostate specific antigen [PSA] Category: Medical Plan: monitor PSA. continue finasteride. Follow-up in 9 months PSA prior. Plan Continue proscar Orders: Orders AMB Urinalysis Automated Today Z13.9 - Encounter for screening, unspecified PSA,Total (Free>4and<10) 8 Months N40.0 - Benign prostatic hyperplasia without lower urinary tract symptoms, R97.20 - Elevated prostate specific antigen [PSA] AMB Post Void Residual by ultrasound Today N39.8 - Other specified disorders of urinary system Patient Instructions: The patient had an opportunity to ask questions regarding treatment plan. The patient expressed understanding and agreement with the above treatment plan. The patient is aware they should contact our office by phone for worsening of their current condition or the appearance of new symptoms. Compliance is encouraged with any medications and followup testing that is ordered. It is a privilege to be allowed the opportunity to participate in the urologic care of your patient. If you have any questions or concerns regarding treatment for the above conditions please do not hesitate to contact me. The office telephone contact is [phone]. This note is constructed in part using voice recognition software. While every effort has been made to ensure accuracy application technician errors may have been included. Yours sincerely, Harris Zhang MD Coding Level of Care Code Est Pt Level 4 (34419) Diagnoses Enlarged prostate N40.0 Elevated PSA R97.20 CPT Codes Post Residual Void - PVR CPT Code: [id number] Void Residual by ultrasound ([id number])
== END 2024-02-23 10:33 | disposition home or self-care (01) ==
PROVIDERS: PCP Internal Medicine; Visit Provider Urology
DX: N40.0 Benign prostatic hyperplasia without lower urinary tract symptoms (principal); R97.20 Elevated prostate specific antigen [PSA]; Z13.9 Encounter for screening, unspecified
CPT/HCPCS: 99214

== ENCOUNTER → 2024-02-23 09:48 | Outpatient (BNVA) | payer MEDICARE, SELFPAY | PROVIDERS: PCP Internal Medicine; Visit Provider Urology | DX: R97.20 Elevated prostate specific antigen [PSA] (principal); N40.0 Benign prostatic hyperplasia without lower urinary tract symptoms; N39.8 Other specified disorders of urinary system | CPT/HCPCS: 51798; 81003; 99212 ==

== ENCOUNTER 2024-02-24 08:38 | Outpatient (AMB) | payer MEDICARE, SELFPAY ==
--- NOTE | 2024-02-24 08:45 | MHC.PC.OV ---
Vital Signs 02/24/24 08:47 Height 5 ft 6 in Weight 219 lb 8 oz BMI 35.4 BP 136/80 Blood Pressure Location Lt brachial Position Sitting Pulse 71 Pulse Source Pulse Oximeter Pulse Oximetry (%) 97 Oxygen Delivery Method Room Air Intake [place] [facility] [place] gout Intake Note: Patient is here to follow-up after a visit the emergency department at [facility] [place]24 Online Services Manager Required: No Nurses Assistant: Not Required per policy Accompanied by: Self / Same As Patient Allergies amoxicillin [AMOXICILLIN] Allergy (Intermediate, Verified 02/24/24 08:46) dizziness,nausea Tobacco use date assessed: 02/24/24 Fall risk assessment: No Falls in past year Last assessed Fall Risk: 02/24/24 Dental Screening Dental Screen Date: 01/12/24 HPI [facility] [place] ankle gout HPI Details 73-year-old male presents to the office after a recent visit to the emergency room. Patient had a gout flare-up in his ankle. Probably the multiple beers he had drank earlier had triggered the event. His symptoms have since subsided. He uses the Naprosyn very intermittently. He is able to walk with no difficulty. [facility] Medical History Enlarged prostate Class 2 severe obesity with body mass index (BMI) of 35 to 39.9 with serious comorbidity Osteoarthritis of neck Benign essential HTN Diverticulosis Bilateral primary osteoarthritis of knee Surgical History History of tooth extraction History of colonoscopy H/O removal of neck cyst History of knee replacement procedure of left knee History of knee replacement procedure of right knee History of tonsillectomy History of appendectomy Family History Father No problems noted. Mother No problems noted. Brother Healthy adult Son No problems noted. Son No problems noted. Daughter Healthy adult Social History Housing: House Alcohol intake: current Alcohol intake frequency: holidays/special occasions only Patient Tobacco Use Status: Former Tobacco user (once a month) Tobacco use type: Cigar e-Cigarette/Vaping Use: Never Used Second Hand Smoke Exposure: Yes service: No Current occupational status: retired Cognitive needs: No Hearing needs: No Vision needs: Yes (glasses) Questionnaire Thrive Questionnaire Date Thrive assessed: 11/27/23 QUAN-7 AMB Questionnaire QUAN-7 Date QUAN - 7 assessed: 11/27/23 Source: Developed by Drs. Homero Ricardo, Meredith Khalil, Bin He and colleagues, with an educational juan miguel from [employer]. Physical exam (Primary Care) Vital Signs: Last Vital Signs Pulse 71 02/24/24 08:47 BP 136/80 02/24/24 08:47 Pulse Ox 97 02/24/24 08:47 Oxygen Delivery Method Room Air 02/24/24 08:47 BMI result Body Mass Index 35.4 Tobacco/Smoking Status: Tobacco use Status Tobacco use date assessed 02/24/24 02/24/24 08:56 Patient Tobacco Use Status Former Tobacco user (once a 02/24/24 08:56 month) Tobacco use type Cigar 02/24/24 08:56 e-Cigarette/Vaping Use Never Used 02/24/24 08:56 Thrive Assessment: Date of Thrive Assessment Date Thrive assessed 11/27/23 02/24/24 08:56 Const General: cooperative and healthy appearing Nutritional Appearance: well nourished Orientation/consciousness: patient oriented x3 Limitations: no limitations HENMT Head: Yes normal to inspection Eyes General: appearance normal, both eyes and all related structures Neck Neck: Yes normal visual inspection Chest Chest palpation & inspection: normal palpation of entire chest wall Resp Effort & Inspection: normal respiratory effort Neuro General: patient oriented x3 Assessment and Plan Assessment & Plan (1) Acute gout: Code(s): M10.9 - Gout, unspecified Plan: Blood work done was reviewed. Uric acid is elevated. First episode of gout which promptly responded to nonsteroidals. Would continue to use nonsteroidals intermittently. Patient was informed that his inflammatory markers are elevated. He needs to reduce weight and exercise more vigorously. Coding Level of Care Code Est Pt Level 3 (22017) Diagnoses Acute gout M10.9
[2024-02-24 08:47] VITALS: BP 136/80; PULSE 71; O2SAT 97; BMI 35.4
== END 2024-02-24 09:35 | disposition home or self-care (01) ==
PROVIDERS: PCP Internal Medicine; Visit Provider Internal Medicine
DX: M10.9 Gout, unspecified (principal)
CPT/HCPCS: 99213

== ENCOUNTER 2024-07-15 10:18 | Outpatient (AMB) | payer MEDICARE, SELFPAY ==
--- NOTE | 2024-07-15 10:24 | A.OFFPC_ITS ---
Vital Signs 07/15/24 10:26 Height 5 ft 6 in Weight 224 lb 8 oz BMI 36.2 BP 120/80 Blood Pressure Location Lt brachial Position Sitting Pulse 68 Pulse Source Pulse Oximeter Pulse Oximetry (%) 95 Oxygen Delivery Method Room Air Intake Visit Reasons: 6mth f/u Intake Note: Patient is here to follow up on HTN. 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 policy Accompanied by: Self / Same As Patient Allergies amoxicillin [AMOXICILLIN] Allergy (Intermediate, Verified 07/16/24 11:35) dizziness,nausea Medication List - Last Reconciled 07/16/24 by Dev Pierre MD alclometasone 0.05% 1 appl topical BID amlodipine 10 mg PO DAILY aspirin (Adult Low Dose Aspirin) 81 mg PO DAILY bisoprolol-hydrochlorothiazide 5-6.25 mg 1 tab PO DAILY finasteride (Proscar) 5 mg PO DAILY 90 days ketoconazole 2% 1 appl topical BID losartan 100 mg PO DAILY naproxen 500 mg PO DAILY Tobacco use date assessed: 07/15/24 Fall risk assessment: No Falls in past year Last assessed Fall Risk: 07/15/24 Dental Screening Dental Screen Date: 01/12/24 HPI 6mth f/u HPI Details 73-year-old male presents to the office to discuss his chronic medical conditions. Patient is at baseline state of health. Able to function and do all activities of daily living. Compliant with medications. Since last office visit, he has had no gout attacks. [facility] Medical History Enlarged prostate Class 2 severe obesity with body mass index (BMI) of 35 to 39.9 with serious comorbidity Osteoarthritis of neck Benign essential HTN Diverticulosis Bilateral primary osteoarthritis of knee Surgical History History of tooth extraction History of colonoscopy (~06/06/20) H/O removal of neck cyst History of knee replacement procedure of left knee History of knee replacement procedure of right knee History of tonsillectomy History of appendectomy Family History Father No problems noted. Mother No problems noted. Brother Healthy adult Son No problems noted. Son No problems noted. Daughter Healthy adult Social History Housing: House Alcohol intake: current Alcohol intake frequency: holidays/special occasions only Patient Tobacco Use Status: Former Tobacco user (once a month) Tobacco use type: Cigar e-Cigarette/Vaping Use: Never Used Second Hand Smoke Exposure: Yes service: No Current occupational status: retired Cognitive needs: No Hearing needs: No Vision needs: Yes (glasses) Questionnaire Thrive Questionnaire Date Thrive assessed: 11/27/23 Are you currently unemployed and looking for a job?: No QUAN-7 AMB Questionnaire QUAN-7 Date QUAN - 7 assessed: 11/27/23 Source: Developed by Drs. Homero Ricardo, Meredith Khalil, Bin He and colleagues, with an educational juan miguel from [employer]. Physical exam (Primary Care) Vital Signs: Last Vital Signs Pulse 68 07/15/24 10:26 BP 120/80 07/15/24 10:26 Pulse Ox 95 07/15/24 10:26 Oxygen Delivery Method Room Air 07/15/24 10:26 Care Plan Goal for BP management: Blood pressure is in range. BMI result Body Mass Index 36.2 BMI Assessment/Plan discussion: High (1 lb per week weight loss suggested.) BMI High, discussed plan: lifestyle, weight reduction, dietary and physical activity Tobacco/Smoking Status: Tobacco use Status Tobacco use date assessed 07/15/24 07/15/24 10:33 Patient Tobacco Use Status Former Tobacco user (once a 07/15/24 10:33 month) Tobacco use type Cigar 07/15/24 10:33 e-Cigarette/Vaping Use Never Used 07/15/24 10:33 Thrive Assessment: Date of Thrive Assessment Date Thrive assessed 11/27/23 07/15/24 10:33 Const General: cooperative and healthy appearing Nutritional Appearance: well nourished Orientation/consciousness: patient oriented x3 Limitations: no limitations HENMT Head: Yes normal to inspection Eyes General: appearance normal, both eyes and all related structures Neck Neck: Yes normal visual inspection Chest Chest palpation & inspection: normal palpation of entire chest wall Resp Effort & Inspection: normal respiratory effort Neuro General: patient oriented x3 Assessment and Plan Assessment & Plan (1) Benign essential HTN: Code(s): I10 - Essential (primary) hypertension Plan: Continue blood pressure medications at same dosage. (2) Class 2 severe obesity with body mass index (BMI) of 35 to 39.9 with serious comorbidity: Code(s): E66.01 - Morbid (severe) obesity due to excess calories Plan: Counseling on the importance of diet and exercise done. Medications: Refilled naproxen 500 mg PO DAILY 30 tabs 0RF bisoprolol-hydrochlorothiazide 5-6.25 mg 1 tab PO DAILY 90 tabs 1RF Coding Level of Care Code Est Pt Level 4 (96303) Complex EM visit Add On G2211 Diagnoses Benign essential HTN I10 Class 2 severe obesity with body mass index (BMI) of 35 to 39.9 with serious comorbidity E66.01
[2024-07-15 10:26] VITALS: BP 120/80; PULSE 68; O2SAT 95; BMI 36.2
== END 2024-07-15 10:55 | disposition home or self-care (01) ==
PROVIDERS: PCP Internal Medicine; Visit Provider Internal Medicine
DX: I10 Essential (primary) hypertension (principal); E66.01 Morbid (severe) obesity due to excess calories; Z68.36 Body mass index [BMI] 36.0-36.9, adult

== ENCOUNTER → 2024-07-15 10:18 | Outpatient (BNVA) | payer MEDICARE, SELFPAY | PROVIDERS: PCP Internal Medicine; Visit Provider Internal Medicine | DX: I10 Essential (primary) hypertension (principal); E66.01 Morbid (severe) obesity due to excess calories | CPT/HCPCS: 99212 ==

== ENCOUNTER 2024-10-15 10:51 | Outpatient (REF) | payer MEDICARE, SELFPAY ==
[2024-10-15 13:26] LABS: PSA,Total (Free>4and<10) 2.98 ng/mL (0.00-4.00)
== END 2024-10-15 10:52 | disposition home or self-care (01) ==
LOC: HO.LAB 10:51
PROVIDERS: PCP Internal Medicine; Visit Provider Urology
DX: N40.0 Benign prostatic hyperplasia without lower urinary tract symptoms (principal); R97.20 Elevated prostate specific antigen [PSA]; Z12.5 Encounter for screening for malignant neoplasm of prostate
CPT/HCPCS: 36415; 84153

== ENCOUNTER 2024-11-01 10:13 | Outpatient (AMB) | payer MEDICARE, SELFPAY ==
--- NOTE | 2024-10-31 17:26 | A.OFFVIS_ITS ---
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 He was seen on 02/23/24. The patient was started on finasteride 5 mg daily. Nolan states he is voiding well. He is currently on naproxen p.r.n. for pain in his knees and lower back otherwise no new medical conditions since he was last seen. Continue finasteride daily. Discussed PSA 10/15/24--2.98 ng/mL Review of chart: 02/23/2024- Nolan is being evaluated due to elevated PSA and enlarged prostate. He was seen on 10/22/2023, discussed PSA- 07/24/2023 was 5.08 ng/mL. The patient was started on finasteride 5 mg daily. He was sent for renal ultrasound and I have reviewed results. He states he has been compliant with the finasteride. He states his urinary flow has been good. Renal ultrasound 11/03/2023--estimated prostate volume 91 mL, kidneys negative for stones or hydronephrosis. Repeat PSA 02/10/2024 is 3.77 ng/mL. Urinalysis leukocytes negative, blood trace. Bladder scan PVR 13 mL, 10/22/2023 Nolan is a 73 year old male who is here for evaluation for elevated PSA. ---07/24/2023--Elevated PSA 5.08 ng/mL, Past Medical history of Class 2 severe obesity with body mass index (BMI) of 35 to 39.9 Benign essential HTN. Bilateral primary osteoarthritis of knee. Surgical history includes but is not limited to:History of knee replacement procedure of B/L knees, appendectomy. The patient has feeling of incomplete bladder emptying and weak urinary stream, denies daytime urinary frequency, urinary incontinence, nocturia x 2, denies hematuria, or dysuria, I have discussed that elevated PSA may indicate changes in the prostate including benign enlargement, cancer and an inflammatory condition. I have discussed doing a biopsy has risks and that management in early detection of prostate cancer may include active surveillance. Exam- Prostate - smooth, enlarged. Discussed plan to Repeat PSA, US Retroperitoneum [facility], [facility] Medical History Enlarged prostate Class 2 severe obesity with body mass index (BMI) of 35 to 39.9 with serious comorbidity Osteoarthritis of neck Benign essential HTN Diverticulosis Bilateral primary osteoarthritis of knee Surgical History History of tooth extraction History of colonoscopy (~06/06/20) H/O removal of neck cyst History of knee replacement procedure of left knee History of knee replacement procedure of right knee History of tonsillectomy History of appendectomy Family History Father No problems noted. Mother No problems noted. Brother Healthy adult Son No problems noted. Son No problems noted. Daughter Healthy adult Social History Housing: House Alcohol intake: current Alcohol intake frequency: holidays/special occasions only Patient Tobacco Use Status: Former Tobacco user (once a month) Tobacco use type: Cigar e-Cigarette/Vaping Use: Never Used Second Hand Smoke Exposure: Yes service: No Current occupational status: retired Cognitive needs: No Hearing needs: No Vision needs: Yes (glasses) Review of Systems Const All systems reviewed & are unremarkable except as noted in HPI and below Reports no additional complaints Eyes Reports no additional complaints ENT Reports no additional complaints Card Reports no additional complaints Resp Reports no additional complaints GI Reports no additional complaints Reports as per HPI Musc Reports no additional complaints Skin/Breast Reports system reviewed and no additional complaints, except as documented Neuro Reports no additional complaints Psych Reports no additional complaints Endo Reports no additional complaints John/Lymph Reports no additional complaints Aller/Immun Reports no additional complaints Results AMB Urinalysis, Automated UA Leukoctes 0 Jerman/uL Last Edit by VEGA Pearce on 11/01/24 10:58 UA Nitrite Negative Last Edit by VEGA Pearce on 11/01/24 10:58 UA Urobilinogen 0.2 mg/dL Last Edit by VEGA Pearce on 11/01/24 10:5 8 UA Protein 0 mg/dL Last Edit by Tressa Loera A on 11/01/24 10:58 UA pH 5.5 Last Edit by Tressa Loera A on 11/01/24 10:58 UA Blood 10 Juan/uL Last Edit by Tressa Loera, A on 11/01/24 10:58 UA Specific [place] 1.015 Last Edit by Tressa Loera A on 11/01/24 10: 58 UA Ketone Negative Last Edit by Tressa Loera A on 11/01/24 10:58 UA Bilirubin 0 mg/dL Last Edit by Tressa Loera A on 11/01/24 10:58 UA Glucose 0 mg/dL Last Edit by Tressa Loera A on 11/01/24 10:58 Results Reviewed Results Reviewed: Laboratory Last Values Urine pH (Auto) 5.5 11/01/24 10:57 Specific [place] (Auto) 1.015 11/01/24 10:57 Urine Protein (Auto) 0 mg/dL 11/01/24 10:57 Glucose (UA)(Auto) 0 mg/dL 11/01/24 10:57 Urine Ketones (Auto) Negative 11/01/24 10:57 Urine Blood (Auto) 10 Juan/uL 11/01/24 10:57 Urine Nitrite (Auto) Negative 11/01/24 10:57 Urine Bilirubin (Auto) 0 mg/dL 11/01/24 10:57 Urine Urobilinogen (Auto) 0.2 mg/dL 11/01/24 10:57 Leukocyte Esterase (Auto) 0 Jerman/uL 11/01/24 10:57 Date of Service: 11/03/23 EXAMINATION: US RETROPERITONEAL COMPLETE (RENAL) CLINICAL INFORMATION: Benign prostatic hyperplasia without lower urinary tract symptoms. COMPARISON: None available. TECHNIQUE: Real-time imaging of the kidneys and bladder. FINDINGS: RIGHT KIDNEY: 10.4 x 5.1 x 6.3 cm (SAG x AP x TRV). The kidney is normal in size, contour, and echogenicity. Renal cortical thickness is normal. No calculi or focal parenchymal lesions. No hydronephrosis. LEFT KIDNEY: 11.7 x 6.1 x 4.7 cm (SAG x AP x TRV). The kidney is normal in size, contour, and echogenicity. Renal cortical thickness is normal. No renal calculi or hydronephrosis. 2.2 cm simple appearing lower pole cyst for which no follow-up imaging is usually warranted. BLADDER: Well distended and normal. Bilateral ureteral jets are demonstrated. Prevoid bladder volume is 208 mL. Postvoid bladder volume is 64 mL. PROSTATE GLAND: 5.2 x 5.9 x 5.7 cm, volume 91 mL. Coarse calcifications are noted within the prostate gland. IMPRESSION: 1. No renal calculi or hydronephrosis of either kidney. 2. Enlarged prostate gland. 3. Prominent post void bladder residual of 64 mL. Assessment & Plan Assessment & Plan (1) Enlarged prostate: Code(s): N40.0 - Benign prostatic hyperplasia without lower urinary tract symptoms Category: Medical (2) Elevated PSA: Code(s): R97.20 - Elevated prostate specific antigen [PSA] Category: Medical Plan: monitor PSA. continue finasteride. Plan Continue proscar. Follow-up in 1 year PSA prior. Orders: Orders AMB Urinalysis Automated Today Z13.9 - Encounter for screening, unspecified PSA,Total (Free>4and<10) 11 Months N40.0 - Benign prostatic hyperplasia without lower urinary tract symptoms, R97.20 - Elevated prostate specific antigen [PSA] Medications: Refilled finasteride (Proscar) 5 mg PO DAILY 90 days 90 tabs 3RF C61 - Malignant neoplasm of prostate Patient Instructions: The patient had an opportunity to ask questions regarding treatment plan. The patient expressed understanding and agreement with the above treatment plan. The patient is aware they should contact our office by phone for worsening of their current condition or the appearance of new symptoms. Compliance is encouraged with any medications and followup testing that is ordered. It is a privilege to be allowed the opportunity to participate in the urologic care of your patient. If you have any questions or concerns regarding treatment for the above conditions please do not hesitate to contact me. The office telephone contact is [phone]. This note is constructed in part using voice recognition software. 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 Yours sincerely, Harris Zhang MD Coding Level of Care Code Est Pt Level 3 (85360) Diagnoses Enlarged prostate N40.0 Elevated PSA R97.20
== END 2024-11-01 11:15 | disposition home or self-care (01) ==
PROVIDERS: PCP Internal Medicine; Visit Provider Urology
DX: N40.0 Benign prostatic hyperplasia without lower urinary tract symptoms (principal); R97.20 Elevated prostate specific antigen [PSA]; Z13.9 Encounter for screening, unspecified
CPT/HCPCS: 99213

== ENCOUNTER 2025-01-20 10:53 | Outpatient (AMB) | payer MEDICARE, SELFPAY ==
[2025-01-20 11:01] VITALS: BP 132/88; PULSE 76; TEMP 36.3; O2SAT 95; BMI 35.2
--- NOTE | 2025-01-20 11:01 | A.OFFPC_ITS ---
Vital Signs 01/20/25 11:01 Height 5 ft 6 in Weight 218 lb 6 oz BMI 35.2 BP 132/88 Blood Pressure Location Lt brachial Position Sitting Pulse 76 Pulse Source Pulse Oximeter Temp 97.3 F Temp Source Temporal Artery Scan Pulse Oximetry (%) 95 Oxygen Delivery Method Room Air Intake Visit Reasons: Annual Exam - see comments Intake Note: Patient is here today for a physical. Vein Access Technician Required: No Accompanied by: Self / Same As Patient Allergies amoxicillin [AMOXICILLIN] Allergy (Intermediate, Verified 01/20/25 11:11) dizziness,nausea Medication List - Last Reconciled 01/20/25 by Debra Villeda PA-C alclometasone 0.05% 1 appl topical BID amlodipine 10 mg PO DAILY aspirin (Adult Low Dose Aspirin) 81 mg PO DAILY bisoprolol-hydrochlorothiazide 5-6.25 mg 1 tab PO DAILY finasteride (Proscar) 5 mg PO DAILY 90 days ketoconazole 2% 1 appl topical BID losartan 100 mg PO DAILY naproxen 500 mg PO DAILY PRN Tobacco use date assessed: 01/20/25 Fall risk assessment: No Falls in past year Last assessed Fall Risk: 01/20/25 Dental Screening Dental Screen Date: 01/20/25 Did you have a dental visit in the last 12 months?: Yes Did you have a dental problem in the last 6 months where you did not have access to dental care?: No Was dental information given to patient?: Patient has dentist [facility] Medical History Gout Enlarged prostate Class 2 severe obesity with body mass index (BMI) of 35 to 39.9 with serious comorbidity Osteoarthritis of neck Benign essential HTN Diverticulosis Bilateral primary osteoarthritis of knee Surgical History History of tooth extraction History of colonoscopy (~06/06/20) H/O removal of neck cyst History of knee replacement procedure of left knee History of knee replacement procedure of right knee History of tonsillectomy History of appendectomy Family History Father No problems noted. Mother No problems noted. Brother Healthy adult Son No problems noted. Son No problems noted. Daughter Healthy adult Social History Housing: House Alcohol intake: current Alcohol intake frequency: holidays/special occasions only Patient Tobacco Use Status: Former Tobacco user (once a month) Tobacco use type: Cigar e-Cigarette/Vaping Use: Never Used Second Hand Smoke Exposure: Yes service: No Current occupational status: retired Cognitive needs: No Hearing needs: No Vision needs: Yes (glasses) Questionnaire PHQ-9 Over the last 2 weeks, how often have you been bothered by any of the following problems? 1. Little interest or pleasure in doing things: not at all 2. Feeling down, depressed, or hopeless: not at all 3. Trouble falling or staying asleep, or sleeping too much: several days 4. Feeling tired or having little energy: not at all 5. Poor appetite or overeating: several days 6. Feeling bad about yourself - or that you are a failure or have let yourself or your family down: not at all 7. Trouble concentrating on things, such as reading the newspaper or watching television: not at all 8. Moving or speaking so slowly that other people could have noticed. Or the opposite - being so fidgety or restless that you have been moving around a lot more than usual: not at all 9. Thoughts that you would be better off or of hurting yourself in some way: not at all Total score: 2 Depression Screening Interpretation: Negative Depression Screening Done: Yes 37685 - PHQ-9 Billing: Yes Source: Developed by Drs. Homero Ricardo, Meredith Khalil, Bin He and colleagues, with an educational juan miguel from [employer]. Thrive Questionnaire Date Thrive assessed: 01/20/25 I am a: Patient What is your living situation today?: I have a steady place to live Within the past 12 months, did the food you bought not last and you didn't have the money to get more?: Never true Within the past 12 months, did you worry whether your food would run out before you got money to buy more?: Never true Do you have trouble paying for medicines?: No Do you have trouble getting transportation to medical appointments?: No Do you have trouble paying your heating and electricity bill?: No Do you have trouble taking care of your child, family member or friend?: No Do you have trouble with day-to-day activities such as bathing, preparing meals, shopping, managing finances, etc.?: No Are you currently unemployed and looking for a job?: No Are you interested in more education?: No Please select the resources that you would like help with: None Currently or been in a relationship where the following occur: No concerns reported THRIVE Score: 0 AUDIT C Alcohol Use Questionnaire (AUDIT-C) 1. How often do you have a drink containing alcohol?: 2-3 times a week 2. How many drinks containing alcohol do you have on a typical day when you are drinking?: 1 or 2 3. How often do you have six or more drinks on one occasion?: Never Total Score: 3 Score Reviewed/Action Taken: No QUAN-7 AMB Questionnaire QUAN-7 Date QUAN - 7 assessed: 01/20/25 Feeling nervous, anxious, or on edge: 0 = Not at all Not being able to stop or control worryin = Not at all Worrying too much about different things: 0 = Not at all Trouble relaxin = Not at all Being so restless that it is hard to sit still: 0 = Not at all Becoming easily annoyed or irritable: 0 = Not at all Feeling afraid as if something awful might happen: 0 = Not at all Total QUAN-7 score (0-4 normal; 5-9 mild; 10-14 moderate; 15-21 severe): 0 Source: Developed by Drs. Homero Ricardo, Meredith Khalil, Bin He and colleagues, with an educational juan miguel from [employer]. QUAN-7 Assessment Billing QUAN-7 Assessment Tool: QUAN-7 Assessment 06640 Physical exam (Primary Care) Vital Signs: Last Vital Signs Temp 97.3 F 01/20/25 11:01 Pulse 76 01/20/25 11:01 BP 132/88 01/20/25 11:01 Pulse Ox 95 01/20/25 11:01 Oxygen Delivery Method Room Air 01/20/25 11:01 Care Plan Goal for BP management: <130/90 at Goal BMI result Body Mass Index 35.2 BMI Assessment/Plan discussion: High BMI High, discussed plan: lifestyle, weight reduction, dietary, physical activity and alcohol moderation Tobacco/Smoking Status: Tobacco use Status Tobacco use date assessed 01/20/25 01/20/25 11:06 Patient Tobacco Use Status Former Tobacco user (once a 01/20/25 11:06 month) Tobacco use type Cigar 01/20/25 11:06 e-Cigarette/Vaping Use Never Used 01/20/25 11:06 PHQ-9: PHQ-9 Score PHQ-9: Total score 2 01/20/25 11:06 Depression Screening Interpretation: Negative Thrive Assessment: Date of Thrive Assessment Date Thrive assessed 01/20/25 01/20/25 11:06 Currently or been in a relationship where the following occur: No concerns repo rted Coding Level of Care Code Est Pt Prev Care >65y(14520) Diagnoses Benign essential HTN I10 Osteoarthritis of spine with radiculopathy, cervical region M47.22 Spinal osteoarthritis complication: with radiculopathy Class 2 severe obesity with body mass index (BMI) of 35 to 39.9 with serious comorbidity E66.01 Enlarged prostate N40.0 Weak urinary stream R39.12 Elevated PSA R97.20 Gout M10.9 Annual physical exam Z00.00 Additional Codes QUAN-7 Assessment Billing - QUAN-7 Assessment Tool: QUAN-7 Assessment 89998 ([id number]) PHQ-9 - 37142 - PHQ-9 Billing: Yes ([id number]) Assessment & Plan Assessment & Plan (1) Benign essential HTN: Code(s): I10 - Essential (primary) hypertension Category: Medical Plan: Blood pressure goal less than 130/90. Blood pressure at goal today. Patient to continue amlodipine 10 mg daily, aspirin 81 daily, bisoprolol- hydrochlorothiazide combo 5-6.25 mg daily, losartan 100 mg daily. Condition is chronic stable continue to monitor. (2) Osteoarthritis of neck: Code(s): M47.812 - Spondylosis without myelopathy or radiculopathy, cervical region Category: Medical Qualifiers: Spinal osteoarthritis complication: with radiculopathy Qualified Code(s): M47.22 - Other spondylosis with radiculopathy, cervical region Plan: Patient to continue naproxen 500 mg daily p.r.n. as needed whenever he needs refills he can contact us. Condition is chronic and stable continue to monitor. (3) Class 2 severe obesity with body mass index (BMI) of 35 to 39.9 with serious comorbidity: Code(s): E66.01 - Morbid (severe) obesity due to excess calories Category: Medical Plan: Patient has improved his diet and exercise regimen. Condition is chronic and stable will continue to monitor. (4) Enlarged prostate: Code(s): N40.0 - Benign prostatic hyperplasia without lower urinary tract symptoms Category: Medical Plan: Patient to continue being followed by Urology Dr. Terrazas. Patient to continue PSA checks as recommended by Urology and they will order PSA levels. Patient to continue finasteride 5 mg daily. Condition is chronic and stable continue to monitor. (5) Weak urinary stream: Code(s): R39.12 - Poor urinary stream Category: Medical Plan: Patient to continue being followed by Urology Dr. Terrazas. Patient to continue PSA checks as recommended by Urology and they will order PSA levels. Patient to continue finasteride 5 mg daily. Condition is chronic and stable continue to monitor. (6) Elevated PSA: Code(s): R97.20 - Elevated prostate specific antigen [PSA] Category: Medical Plan: PSA level has normalized. Patient to continue being followed by Urology and have regular PSA levels checked assessed by Urology as recommended by them. Condition is chronic and stable continue to monitor. (7) Gout: Code(s): M10.9 - Gout, unspecified Category: Medical Plan: Patient has had only 1 episode. Had elevated uric acid level 1 year ago. Condition is chronic and stable continue to monitor. (8) Osteoarthritis of neck: Code(s): M47.812 - Spondylosis without myelopathy or radiculopathy, cervical region Category: Medical Qualifiers: Spinal osteoarthritis complication: with radiculopathy Qualified Code(s): M47.22 - Other spondylosis with radiculopathy, cervical region (9) Class 2 severe obesity with body mass index (BMI) of 35 to 39.9 with serious comorbidity: Code(s): E66.01 - Morbid (severe) obesity due to excess calories Category: Medical (10) Enlarged prostate: Code(s): N40.0 - Benign prostatic hyperplasia without lower urinary tract symptoms Category: Medical (11) Weak urinary stream: Code(s): R39.12 - Poor urinary stream Category: Medical (12) Elevated PSA: Code(s): R97.20 - Elevated prostate specific antigen [PSA] Category: Medical (13) Annual physical exam: Code(s): Z00.00 - Encounter for general adult medical examination without abnormal findings Category: Medical Plan Plan Patient was informed and verbally consented to the use of an ambient scribe for clinic note documentation during this visit. 1. Obesity Recommendation for ongoing weight management through diet and exercise. 2. Internal Hemorrhoids Colonoscopy planned for this year; observe and report symptoms indicative of flare-ups. 3. Personal history of other specified conditions Collaboration with urologist to continually monitor PSA levels without redundant testing. 4. Essential (primary) hypertension Continuing current medications given effective blood pressure control. Biannual monitoring and follow-up advised. 5. Enlarged Prostate Continual PSA monitoring and finasteride therapy under Dr. Vann?s guidance. 6. History Of Gout No maintenance medication needed; monitor for any repeat episodes. 7. Spondylosis without myelopathy or radiculopathy, cervical region Symptomatic management advised, focusing on lifestyle modifications and occasional analgesia. Discussion Notes During the consultation, we discussed the patient's stable management and treatment of benign essential hypertension with his current medication scheme, ensuring well-controlled blood pressure readings. We reviewed his urological history of elevated PSA levels and the ongoing management under Dr. Vann with finasteride therapy, providing reassurance regarding the stabilization of PSA values. The patient's osteoarthritis management plan currently remains unchanged but focusing on lifestyle adaptations and [id number] pain relief when necessary. In addressing his weight, I emphasized maintaining a balanced diet and regular activity. We talked about the surveillance protocol for his internal hemorrhoids with a scheduled colonoscopy in line with a five-year monitoring schedule. Furthermore, the patient's history of a solitary gout episode does not currently necessitate chronic pharmacological intervention. I reinforced the importance of regular check-ups, particularly amid the stress of his 's bone cancer treatment, to ensure continued health and support his role as a caregiver. The patient agreed with the plans, and no further interventions were deemed necessary at this time. Orders: Orders Complete Blood Count Auto Diff Today Z00.00 - Encounter for general adult medical examination without abnormal findings Comprehensive Vaughn. Panel Fast Today Z00.00 - Encounter for general adult medical examination without abnormal findings C Reactive Protein Today Z00.00 - Encounter for general adult medical examination without abnormal findings Lipid Panel Today Z00.00 - Encounter for general adult medical examination without abnormal findings Vitamin D 25-OH Total Today Z00.00 - Encounter for general adult medical examination without abnormal findings Hemoglobin A1c Today Z00.00 - Encounter for general adult medical examination without abnormal findings Erythrocyte Sedimentation Rate Today Z00.00 - Encounter for general adult medical examination without abnormal findings Liver Panel Today Z00.00 - Encounter for general adult medical examination without abnormal findings Magnesium Today Z00.00 - Encounter for general adult medical examination without abnormal findings TSH reflex Free T4 Today Z00.00 - Encounter for general adult medical examination without abnormal findings Medications: Refilled losartan 100 mg PO DAILY 90 tabs 1RF bisoprolol-hydrochlorothiazide 5-6.25 mg 1 tab PO DAILY 90 tabs 1RF amlodipine 10 mg PO DAILY 90 tabs 1RF Patient Instructions: Patient Instructions - Continue current medications for blood pressure as directed. - Monitor for any new or recurrent symptoms of gout or hemorrhoids. - Maintain a balanced diet and continue moderate physical activity. - Schedule and complete the upcoming surveillance colonoscopy when contacted by specialists. - Return to clinic in six months for routine follow-up unless new symptoms arise. - Report any significant changes in urination or gastrointestinal symptoms. - Ensure regular communication with Dr. Vann regarding prostate health. - Remain vigilant about maintaining personal health while caregiving for your . - Remember to complete fasting blood work before the next appointment. Scribe Plan - Not visible on output: History of Present Illness The patient is a 74-year-old male presenting for a routine physical examination and in addition medication management. He has a history of benign essential hypertension and currently employs a regimen of amlodipine, hydrochlorothiazide, bisoprolol, and losartan to manage his condition. He is also receiving care for osteoarthritis in his neck and has been classified as obese. His urological history includes an enlarged prostate with past elevated PSA levels, which is currently managed by Dr. Terrazas. The patient's finasteride therapy has contributed to a decrease in PSA levels, and he is monitored for potential further increases. Additionally, he has a documented history of a solitary gout incident last year, associated with elevated uric acid levels, though not requiring chronic medication at present. He has a prior history of colonoscopy in 2019, leading to a five-year follow-up schedule due to the presence of internal hemorrhoids and a polyp. The patient underwent bilateral knee replacements, which have resulted in occasional minor swelling but without significant complications. Cardiovascularly, he denies chest pain or respiratory symptoms and reports good management of his blood pressure. His social responsibilities include extensive support for his , who is undergoing treatment for bone cancer, and he remains physically active without needing assistance for his own health needs. Social History - Retired and resides with his . 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 - Active lifestyle with no need for assistive devices. - Reports providing support but is vigilant with his medical regimen to maintain his health. Review of Systems - Gastrointestinal: Denies changes in bowel movements, reports a prior history of internal hemorrhoids. - Genitourinary: Denies hematuria, difficulty urinating post prostate management. - Musculoskeletal: Reports mild swelling in knees, no reported joint pain beyond osteoarthritis of the neck. - Cardiovascular: Denies chest pain or shortness of breath. Physical Exam Appearance: Alert. Oriented X3. No acute distress. Head: Normal external exam. Normocephalic. Atraumatic. Eyes: Pupils are equal, round, and reactive to light. Extraocular movements intact. Conjunctiva and sclera normal. Eyelids normal. Ears: External auditory canal normal. Tympanic membranes normal. Throat: Pharynx normal. Uvula midline. Moist mucous membranes. Neck: Normal inspection. Neck supple. Full range of motion. No adenopathy. Thyroid Normal. No meningeal signs. No neck mass noted. Cardiovascular: Normal heart rate and rhythm. Heart sound normal. No murmurs noted. Pulses normal throughout. Respiratory: No respiratory distress. Painless inspiration. Breath sounds normal. No wheezes/rales/rhonchi noted. Chest nontender. No accessory muscle usage noted or decreased air movement noted. Abdomen: Soft and nontender. Bowel sounds normal in all 4 quadrants. No distention noted. No organomegaly noted. No visible injury noted. Back: No costovertebral angle tenderness. Full range of motion noted. Skin: Skin warm and dry. Normal skin color. Normal skin turgor. No rashes/lesions/lacerations noted. Extremities: Slight lower extremity edema noted. No caf tenderness is noted. Extremities exhibit normal range of motion. Extremities nontender. Neuro: Oriented X 3. No motor deficit. No sensory deficit. Reflexes normal. Results - Labs: Elevated uric acid previously at 8.5, current PSA at 2.98 with a history of elevation to 5.08. - Diagnostic Imaging: Colonoscopy in 2019 revealed internal hemorrhoids and a polyp.
== END 2025-01-20 11:27 | disposition home or self-care (01) ==
LOC: HO.HMCH 10:54
PROVIDERS: PCP Internal Medicine; Visit Provider Physician Assistant Medical
DX: Z00.00 Encounter for general adult medical examination without abnormal findings (principal); I10 Essential (primary) hypertension; E66.01 Morbid (severe) obesity due to excess calories; Z68.35 Body mass index [BMI] 35.0-35.9, adult; M47.22 Other spondylosis with radiculopathy, cervical region; N40.0 Benign prostatic hyperplasia without lower urinary tract symptoms; R39.12 Poor urinary stream; R97.20 Elevated prostate specific antigen [PSA]; M10.9 Gout, unspecified

== ENCOUNTER → 2025-01-20 10:53 | Outpatient (BNVA) | payer MEDICARE, SELFPAY | PROVIDERS: PCP Internal Medicine; Visit Provider Physician Assistant Medical | DX: Z00.00 Encounter for general adult medical examination without abnormal findings (principal); I10 Essential (primary) hypertension; M47.22 Other spondylosis with radiculopathy, cervical region; E66.01 Morbid (severe) obesity due to excess calories; Z68.35 Body mass index [BMI] 35.0-35.9, adult; N40.0 Benign prostatic hyperplasia without lower urinary tract symptoms; R39.12 Poor urinary stream; M10.9 Gout, unspecified; R97.20 Elevated prostate specific antigen [PSA]; Z71.3 Dietary counseling and surveillance | CPT/HCPCS: 96127; 99397 ==

== ENCOUNTER 2025-08-17 07:40 | Outpatient (REF) | payer MEDICARE, SELFPAY ==
[2025-08-17 07:54] LABS: MANUAL DIFF FLAG NO
[2025-08-17 08:09] LABS: Hematocrit 49.7 % (42.0-52.0); Hemoglobin 17.1 g/dl (14.0-18.0); Imm Gran Abs Auto 0.04 X10*3/uL (0.00-0.03); Imm Gran Pct Auto 0.4 % (0.0-0.4); Lymphocytes Absolute Auto 4.6 X10*3/uL (1.2-4.9); Mean Corpuscular HGB Conc 34.4 g/dl (31.0-36.0); Mean Corpuscular Hemoglobin 30.3 pg (27.0-33.0); Mean Corpuscular Volume 88.1 fL (80.0-98.0); NRBC Abs Auto 0.000 X10*3/uL (0.0-0.012); NRBC Pct Auto 0.0 /100WBC (0.0-0.2); Platelet Count 241 X10*3/uL (160-400); Red Blood Count 5.64 X10*6/uL (4.60-5.80); White Blood Count 10.9 X10*3/uL (4.8-10.8)
[2025-08-17 09:00] LABS: Alanine Aminotransferase 49 U/L (0-40); Albumin Level 4.4 g/dL (3.5-5.0); Alkaline Phosphatase 55 U/L (39-117); Anion Gap 12 (12-20); Aspartate Amino Transferase 45 U/L (5-37); Blood Urea Nitrogen 15 mg/dL (9-16); Calcium 9.4 mg/dL (8.4-10.2); Carbon Dioxide 27 mmol/L (22-29); Chloride 109 mmol/L (96-108); Cholesterol 205 mg/dL (<200); Estimated Glomerular Filt Rate > 60; HDL Cholesterol 32 mg/dL (>40); Magnesium 1.9 mg/dL (1.6-2.6); Potassium 3.8 mmol/L (3.3-5.1); Sodium 144 mmol/L (135-145); Total Protein 7.2 g/dL (6.5-8.0); Triglycerides 267 mg/dL (<150)
== END 2025-08-17 07:41 | disposition home or self-care (01) ==
LOC: HO.LAB 07:40
PROVIDERS: PCP Internal Medicine; Visit Provider Physician Assistant Medical
DX: Z00.00 Encounter for general adult medical examination without abnormal findings (principal); Z13.6 Encounter for screening for cardiovascular disorders; Z13.1 Encounter for screening for diabetes mellitus; Z13.29 Encounter for screening for other suspected endocrine disorder
CPT/HCPCS: 36415; 80053; 80061; 80076; 82248; 82306; 83036; 83735; 84443; 85025; 85652; 86140

== ENCOUNTER 2025-08-25 10:23 | Outpatient (AMB) | payer MEDICARE, SELFPAY ==
--- NOTE | 2025-08-25 10:29 | A.OFFPC_ITS ---
Vital Signs 08/25/25 10:32 Height 5 ft 6 in Weight 221 lb BMI 35.7 BP 140/68 H Blood Pressure Location Lt brachial Position Sitting Pulse 59 Pulse Source Pulse Oximeter Temp 97.3 F Temp Source Temporal Artery Scan Pulse Oximetry (%) 96 Oxygen Delivery Method Room Air Intake Visit Reasons: 6 month f/u - see comments Intake Note: Patient is here to follow up on HLD, HTN . 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 Accompanied by: Spouse Allergies amoxicillin (AMOXICILLIN) Allergy (Intermediate, Verified 08/25/25 10:32) dizziness,nausea Tobacco use date assessed: 08/25/25 Fall risk assessment: No Falls in past year Last assessed Fall Risk: 08/25/25 Dental Screening Dental Screen Date: 01/20/25 [facility] Medical History (Updated 08/17/25 @ 10:42 by Debra Villeda PA-C) Prediabetes Vitamin D deficiency Pure hypercholesterolemia, unspecified Hyperlipidemia Hypertriglyceridemia Gout Enlarged prostate Class 2 severe obesity with body mass index (BMI) of 35 to 39.9 with serious comorbidity Osteoarthritis of neck Benign essential HTN Diverticulosis Bilateral primary osteoarthritis of knee Surgical History History of tooth extraction History of colonoscopy (~06/06/20) H/O removal of neck cyst History of knee replacement procedure of left knee History of knee replacement procedure of right knee History of tonsillectomy History of appendectomy Family History Father No problems noted. Mother No problems noted. Brother Healthy adult Son No problems noted. Son No problems noted. Daughter Healthy adult Social History Housing: House Alcohol intake: current Alcohol intake frequency: holidays/special occasions only Patient Tobacco Use Status: Former Tobacco user (once a month) Tobacco use type: Cigar e-Cigarette/Vaping Use: Never Used Second Hand Smoke Exposure: Yes service: No Current occupational status: retired Cognitive needs: No Hearing needs: No Vision needs: Yes (glasses) Questionnaire Thrive Questionnaire Date Thrive assessed: 01/20/25 I am a: Patient What is your living situation today?: I have a steady place to live Within the past 12 months, did the food you bought not last and you didn't have the money to get more?: Never true Within the past 12 months, did you worry whether your food would run out before you got money to buy more?: Never true Do you have trouble paying for medicines?: No Do you have trouble getting transportation to medical appointments?: No Do you have trouble paying your heating and electricity bill?: No Do you have trouble taking care of your child, family member or friend?: No Do you have trouble with day-to-day activities such as bathing, preparing meals, shopping, managing finances, etc.?: No Are you currently unemployed and looking for a job?: No Are you interested in more education?: No Please select the resources that you would like help with: None Currently or been in a relationship where the following occur: No concerns reported THRIVE Score: 0 QUAN-7 AMB Questionnaire QUAN-7 Date QUAN - 7 assessed: 01/20/25 Source: Developed by Drs. Homero Ricardo, Meredith Khalil, Bin He and colleagues, with an educational juan miguel from [employer]. Physical exam (Primary Care) Vital Signs: Last Vital Signs Temp 97.3 F 08/25/25 10:32 Pulse 59 08/25/25 10:32 BP 140/68 H 08/25/25 10:32 Pulse Ox 96 08/25/25 10:32 Oxygen Delivery Method Room Air 08/25/25 10:32 BMI result Body Mass Index 35.7 Tobacco/Smoking Status: Tobacco use Status Tobacco use date assessed 08/25/25 08/25/25 10:40 Patient Tobacco Use Status Former Tobacco user (once a 08/25/25 10:30 month) Tobacco use type Cigar 08/25/25 10:30 e-Cigarette/Vaping Use Never Used 08/25/25 10:30 Thrive Assessment: Date of Thrive Assessment Date Thrive assessed 01/20/25 08/25/25 10:30 Currently or been in a relationship where the following occur: No concerns reported Coding Level of Care Code Est Pt Level 4 (70618) Complex EM visit Add On G2211 Diagnoses Benign essential HTN I10 Assessment & Plan Assessment & Plan (1) Benign essential HTN: Code(s): I10 - Essential (primary) hypertension Category: Medical Plan: History of Present Illness - The patient is a 74-year-old male presenting with a wellness check-up. - Hyperlipidemia: Recent blood work showed elevated cholesterol levels, and the patient has started Rosuvastatin 10 mg daily. - Elevated liver enzymes: Blood work indicated slightly elevated liver function tests, not deemed significant. - Cataracts: The patient reports cataracts affecting night driving. - Neck pain: The patient experiences neck pain that worsens with activity. - Preventative care: The patient prefers Cologuard for colon cancer screening and plans to receive influenza and RSV vaccinations. Social History Review of Systems - Ophthalmologic: Reports cataracts affecting night driving. - Musculoskeletal: Reports neck pain that varies with activity. Physical Exam General: Cooperative and healthy appearing Nutritional Appearance: Well nourished Orientation/consciousness: Patient oriented x3 Limitations: No limitations Head: Normal to inspection General: Appearance normal, both eyes and all related structures Neck: Normal visual inspection Chest: Normal palpation of entire chest wall Respiratory: All good. ormal respiratory effort Neurology: Patient oriented x3, starting with cataract. Results - Labs: Elevated cholesterol levels, slightly elevated liver function tests, no anemia, hemoglobin A1c within normal limits. Plan - Continue Rosuvastatin 10 mg daily for hyperlipidemia. - Monitor liver function tests periodically. - Use Cologuard for colon cancer screening. - Administer influenza vaccine today. - Obtain RSV vaccination at the pharmacy. - Consider ophthalmology referral for cataracts if symptoms progress. Discussion Notes During the visit, we discussed the patient's elevated cholesterol and liver function tests, emphasizing the importance of continuing Rosuvastatin. We also reviewed the patient's preference for Cologuard over colonoscopy for colon cancer screening. I recommended receiving the influenza vaccine today and a dvised obtaining the RSV vaccine at the pharmacy. We also touched on the patient's cataracts and the potential need for an ophthalmology referral if symptoms worsen. Patient Instructions - Continue taking Rosuvastatin 10 mg daily. - Monitor liver function with periodic blood tests. - Complete the Cologuard test for colon cancer screening when it arrives. - Get the influenza vaccine today. - Obtain the RSV vaccine at the pharmacy. - Consult an hog cutter if cataract symptoms worsen. Orders: Referrals Cologuard Test Z12.11 - Encounter for screening for malignant neoplasm of colon Medications: Refilled amlodipine 10 mg PO DAILY 90 tabs 1RF naproxen 500 mg PO DAILY PRN 30 tabs 0RF pain
[2025-08-25 10:32] VITALS: BP 140/68; PULSE 59; TEMP 36.3; O2SAT 96; BMI 35.7
== END 2025-08-25 11:11 | disposition home or self-care (01) ==
LOC: HO.HMCH 10:24
PROVIDERS: PCP Internal Medicine; Visit Provider Internal Medicine
DX: I10 Essential (primary) hypertension (principal); Z23 Encounter for immunization

== ENCOUNTER → 2025-08-25 10:23 | Outpatient (BNVA) | payer MEDICARE, SELFPAY | PROVIDERS: PCP Internal Medicine; Visit Provider Internal Medicine | DX: I10 Essential (primary) hypertension (principal); E78.5 Hyperlipidemia, unspecified; R74.8 Abnormal levels of other serum enzymes; M54.2 Cervicalgia; Z23 Encounter for immunization; Z79.899 Other long term (current) drug therapy | CPT/HCPCS: 90471; 90656; 99212 ==

== ENCOUNTER 2025-10-17 15:34 | Outpatient (REF) | payer MEDICARE, SELFPAY ==
[2025-10-17 18:03] LABS: PSA,Total (Free>4and<10) 3.18 ng/mL (0.00-4.00)
== END 2025-10-17 15:35 | disposition home or self-care (01) ==
LOC: HO.LAB 15:34
PROVIDERS: PCP Internal Medicine; Visit Provider Urology
DX: Z12.5 Encounter for screening for malignant neoplasm of prostate (principal); N40.0 Benign prostatic hyperplasia without lower urinary tract symptoms; R97.20 Elevated prostate specific antigen [PSA]
CPT/HCPCS: 36415; 84153